=== PATIENT | female | born 1935 | race Caucasian/White ===

== ENCOUNTER 2017-11-11 06:43 | Inpatient (IN) ==
[2017-11-11] MEDS ORDERED: fentaNYL 100 MCG/2 ML VIAL IV STA (07:19)
[2017-11-11] MEDS ORDERED: metroNIDAZOLE INJ 500 MG in PREMIX 1 EACH IV STA (07:19)
[2017-11-11] MEDS ORDERED: ONDANSETRON 4 MG/2 ML VIAL IV STA (07:20)
[2017-11-11] MEDS ORDERED: PANTOPRAZOLE 40 MG TABLET PO SCH (09:20)
[2017-11-11] MEDS ORDERED: ACETAMINOPHEN 325 MG TABLET PO PRN (09:20)
[2017-11-11] MEDS: LACTATED RINGERS 1,000 ML IV SCH ×3 (10:25→21:01)
[2017-11-11] MEDS: MEPERIDINE 25 MG/1 ML VIAL IV PRN ×3 (10:25→20:58)
[2017-11-11] MEDS: CIPROFLOXACIN INJ 400 MG in PREMIX 1 EACH IV SCH ×2 (10:29→20:58)
[2017-11-11] MEDS: ATENOLOL 50 MG TABLET PO SCH ×2 (10:39→20:55)
[2017-11-11] MEDS: MEGESTROL 40 MG TABLET PO SCH ×4 (10:39→21:15)
[2017-11-11] MEDS: PANTOPRAZOLE 40 MG TABLET PO SCH (10:39)
[2017-11-11] MEDS: SIMVASTATIN 40 MG TABLET PO SCH (10:39)
[2017-11-11] MEDS: metroNIDAZOLE INJ 500 MG in PREMIX 1 EACH IV SCH ×2 (12:45→17:43)
[2017-11-11] MEDS: ONDANSETRON 4 MG/2 ML VIAL IV PRN (17:05)
[2017-11-11] MEDS: MIRTAZAPINE 30 MG TABLET PO SCH (18:30)
[2017-11-12] MEDS: ONDANSETRON 4 MG/2 ML VIAL IV PRN (01:03)
[2017-11-12] MEDS: MEPERIDINE 25 MG/1 ML VIAL IV PRN (01:03)
[2017-11-12] MEDS: metroNIDAZOLE INJ 500 MG in PREMIX 1 EACH IV SCH ×3 (01:04→23:12)
[2017-11-12] MEDS: LACTATED RINGERS 1,000 ML IV SCH ×3 (03:19→19:31)
[2017-11-12] MEDS: ENOXAPARIN 40 MG/0.4 ML SYRINGE SUBCUT SCH (06:05)
[2017-11-12] MEDS: LEVOTHYROXINE 100 MCG TABLET PO SCH (06:05)
[2017-11-12 07:08] LABS: Basophils % 0.1 % (0.0-0.8); Eosinophils % 0.1 % (0.00-10.9); Hematocrit 35.7 VOL% (35.7-47.0); Hemoglobin 11.4 GM/DL (12.0-16.0); Immature Granulocytes % 0.6 %; Immature Granulocytes Absolute 0.15 #; Lymphocytes # 1.8 10*3/uL (1.4-4.0); Lymphocytes % 7.6 % (21.3-54.2); Mean Corpuscular HGB Conc 31.9 GM/DL (32-36); Mean Corpuscular Hemoglobin 30 PG (27-34); Mean Corpuscular Volume 92.5 FL (87-102); Mean Platelet Volume 11.4 FL (9.6-12.0); Monocytes # 1.1 10*3/uL (0.11-0.8); Monocytes % 4.7 % (1.7-12.7); Neutrophils # 20.2 10*3/uL (1.4-7.4); Neutrophils % 86.9 % (38.7-73.9); Platelet Count 272 T/CUMM (130-400); Red Blood Count 3.86 MC/CUMM (3.8-5.5); Red Cell Distribution Width 13.4 % (9.3-17.3); White Blood Count 23.3 T/CUMM (4-12)
[2017-11-12 07:31] LABS: Calcium 8.3 MG/DL (8.5-10.1); Osmolality,Calculated 280.5 MOS/KG (273-304); Potassium 3.8 MMOL/L (3.5-5.1)
[2017-11-12 07:39] LABS: Band Neutrophils 3 % (0-10); Lymphocytes 3 % (20-55); Segmented Neutrophils 89 % (50-85); Total Cells Counted 100
[2017-11-12 07:40] LABS: Microcytosis Slight; Platelet Estimate Normal
[2017-11-12] MEDS: MEGESTROL 40 MG TABLET PO SCH ×4 (09:59→20:36)
[2017-11-12] MEDS: PANTOPRAZOLE 40 MG TABLET PO SCH (09:59)
[2017-11-12] MEDS: SIMVASTATIN 40 MG TABLET PO SCH (09:59)
[2017-11-12] MEDS: ATENOLOL 50 MG TABLET PO SCH ×2 (09:59→23:12)
[2017-11-12] MEDS: CIPROFLOXACIN INJ 400 MG in PREMIX 1 EACH IV SCH ×2 (11:02→20:35)
[2017-11-12] MEDS: MIRTAZAPINE 30 MG TABLET PO SCH (18:42)
[2017-11-13 06:01] LABS: Basophils % 0.1 % (0.0-0.8); Eosinophils # 0.1 10*3/uL (0.0-0.87); Eosinophils % 0.9 % (0.00-10.9); Hematocrit 32.9 VOL% (35.7-47.0); Hemoglobin 10.9 GM/DL (12.0-16.0); Immature Granulocytes % 0.7 %; Immature Granulocytes Absolute 0.11 #; Lymphocytes # 1.5 10*3/uL (1.4-4.0); Lymphocytes % 9.2 % (21.3-54.2); Mean Corpuscular HGB Conc 33.1 GM/DL (32-36); Mean Corpuscular Hemoglobin 30 PG (27-34); Mean Corpuscular Volume 91.1 FL (87-102); Mean Platelet Volume 11.4 FL (9.6-12.0); Monocytes # 0.9 10*3/uL (0.11-0.8); Monocytes % 5.8 % (1.7-12.7); Neutrophils # 13.5 10*3/uL (1.4-7.4); Neutrophils % 83.3 % (38.7-73.9); Platelet Count 232 T/CUMM (130-400); Red Blood Count 3.61 MC/CUMM (3.8-5.5); Red Cell Distribution Width 13.4 % (9.3-17.3); White Blood Count 16.1 T/CUMM (4-12)
[2017-11-13 06:20] LABS: Calcium 7.8 MG/DL (8.5-10.1); Osmolality,Calculated 280.4 MOS/KG (273-304); Potassium 3.8 MMOL/L (3.5-5.1)
[2017-11-13] MEDS: ENOXAPARIN 40 MG/0.4 ML SYRINGE SUBCUT SCH (06:42)
[2017-11-13] MEDS: LACTATED RINGERS 1,000 ML IV SCH (06:42)
[2017-11-13] MEDS: LEVOTHYROXINE 100 MCG TABLET PO SCH (06:43)
[2017-11-13] MEDS: metroNIDAZOLE INJ 500 MG in PREMIX 1 EACH IV SCH (06:43)
[2017-11-13] MEDS: metroNIDAZOLE 500 MG TABLET PO SCH ×3 (11:12→21:00)
[2017-11-13] MEDS: CIPROFLOXACIN 500 MG TABLET PO SCH ×2 (11:12→21:00)
[2017-11-13] MEDS: MEGESTROL 40 MG TABLET PO SCH ×4 (11:13→21:00)
[2017-11-13] MEDS: PANTOPRAZOLE 40 MG TABLET PO SCH (11:13)
[2017-11-13] MEDS: SIMVASTATIN 40 MG TABLET PO SCH (11:13)
[2017-11-13] MEDS: ATENOLOL 50 MG TABLET PO SCH ×2 (11:13→21:00)
[2017-11-13] MEDS: MIRTAZAPINE 30 MG TABLET PO SCH (19:34)
[2017-11-14 05:21] LABS: Basophils % 0.2 % (0.0-0.8); Eosinophils # 0.2 10*3/uL (0.0-0.87); Eosinophils % 1.4 % (0.00-10.9); Hematocrit 35.6 VOL% (35.7-47.0); Hemoglobin 11.4 GM/DL (12.0-16.0); Immature Granulocytes % 0.5 %; Immature Granulocytes Absolute 0.07 #; Lymphocytes # 1.5 10*3/uL (1.4-4.0); Lymphocytes % 10.9 % (21.3-54.2); Mean Corpuscular Hemoglobin 30 PG (27-34); Mean Corpuscular Volume 93.4 FL (87-102); Mean Platelet Volume 11.7 FL (9.6-12.0); Monocytes # 0.8 10*3/uL (0.11-0.8); Monocytes % 6.2 % (1.7-12.7); Neutrophils # 10.8 10*3/uL (1.4-7.4); Neutrophils % 80.8 % (38.7-73.9); Platelet Count 254 T/CUMM (130-400); Red Blood Count 3.81 MC/CUMM (3.8-5.5); Red Cell Distribution Width 13.4 % (9.3-17.3); White Blood Count 13.3 T/CUMM (4-12)
[2017-11-14] MEDS: ENOXAPARIN 40 MG/0.4 ML SYRINGE SUBCUT SCH (06:42)
[2017-11-14] MEDS: LEVOTHYROXINE 100 MCG TABLET PO SCH (06:42)
[2017-11-14 08:06] VITALS: BP 136/68
[2017-11-14] MEDS: metroNIDAZOLE 500 MG TABLET PO SCH (10:19)
[2017-11-14] MEDS: CIPROFLOXACIN 500 MG TABLET PO SCH (10:19)
[2017-11-14] MEDS: MEGESTROL 40 MG TABLET PO SCH (10:20)
[2017-11-14] MEDS: SIMVASTATIN 40 MG TABLET PO SCH (10:20)
[2017-11-14] MEDS: PANTOPRAZOLE 40 MG TABLET PO SCH (10:20)
[2017-11-14] MEDS: ATENOLOL 50 MG TABLET PO SCH (10:20)
== END 2017-11-14 11:03 | disposition home or self-care (01) | DRG 392 ==
LOC: EDBD → EDUNIT# → N.ED 06:43 → N.EDINP 07:30 → N.3E 08:45
PROVIDERS: ADMIT Surgery; ATTEND Surgery

== ENCOUNTER 2018-01-10 05:30 | Inpatient (IN) ==
[2018-01-03 09:51] LABS: Basophils # 0.1 10*3/uL (0.0-0.2); Basophils % 0.7 % (0.0-0.8); Eosinophils # 0.3 10*3/uL (0.0-0.87); Eosinophils % 2.5 % (0.00-10.9); Hematocrit 42.2 VOL% (35.7-47.0); Hemoglobin 13.6 GM/DL (12.0-16.0); Immature Granulocytes % 0.8 %; Lymphocytes # 3.1 10*3/uL (1.4-4.0); Lymphocytes % 26.4 % (21.3-54.2); Mean Corpuscular HGB Conc 32.2 GM/DL (32-36); Mean Corpuscular Hemoglobin 29 PG (27-34); Mean Corpuscular Volume 91.3 FL (87-102); Mean Platelet Volume 10.6 FL (9.6-12.0); Monocytes # 1.2 10*3/uL (0.11-0.8); Monocytes % 9.8 % (1.7-12.7); Neutrophils # 7.1 10*3/uL (1.4-7.4); Neutrophils % 59.8 % (38.7-73.9); Platelet Count 404 T/CUMM (130-400); Red Blood Count 4.62 MC/CUMM (3.8-5.5); Red Cell Distribution Width 13.1 % (9.3-17.3); White Blood Count 11.8 T/CUMM (4-12)
[2018-01-03 10:10] LABS: Albumin 3.3 G/DL (3.4-5.0); Bilirubin,Total 0.6 MG/DL (0.2-1.0); Calcium 9.2 MG/DL (8.5-10.1); Osmolality,Calculated 284.3 MOS/KG (273-304); Potassium 3.8 MMOL/L (3.5-5.1); Total Protein 7.9 G/DL (6.4-8.3)
[2018-01-10] MEDS ORDERED: ALVIMOPAN 12 MG CAPSULE PO ONE (06:00)
[2018-01-10] MEDS ORDERED: ACETAMINOPHEN 500 MG TABLET PO ONE (06:20)
[2018-01-10] MEDS ORDERED: PANTOPRAZOLE 40 MG TABLET PO ONE ×2 (06:20→07:53)
[2018-01-10] MEDS ORDERED: LACTATED RINGERS 1,000 ML IV SCH (06:30)
[2018-01-10] MEDS ORDERED: SCOPOLAMINE 1.5 MG PATCH TRANSDERM ONE ×2 (06:33→06:34)
[2018-01-10] MEDS ORDERED: ERTAPENEM 1,000 MG VIAL ONE (07:52)
[2018-01-10] MEDS ORDERED: ALVIMOPAN 12 MG CAPSULE ONE (07:53)
[2018-01-10] MEDS ORDERED: ERTAPENEM 1,000 MG in SODIUM CHLORIDE 0.9% 100 ML IV ONE (11:18)
[2018-01-10] MEDS ORDERED: fentaNYL 100 MCG/2 ML VIAL ONE (13:57)
[2018-01-10] MEDS ORDERED: PROPOFOL 200 MG/20 ML VIAL IV ONE (13:57)
[2018-01-10] MEDS ORDERED: ROCURONIUM 100 MG/10 ML VIAL IV ONE (13:58)
[2018-01-10] MEDS ORDERED: DEXAMETHASONE 10 MG/1 ML VIAL ONE (13:58)
[2018-01-10] MEDS ORDERED: ONDANSETRON 4 MG/2 ML VIAL ONE ×2 (13:58→14:03)
[2018-01-10] MEDS ORDERED: MIDAZOLAM 2 MG/2 ML VIAL ONE (13:58)
[2018-01-10] MEDS ORDERED: SEVOFLURANE 1 UNIT/15 MINUTE INH ONE (13:59)
[2018-01-10] MEDS: HYDROmorphone 2 MG/1 ML VIAL IV PRN ×5 (14:00→19:55)
[2018-01-10] MEDS ORDERED: SUGAMMADEX 200 MG/2 ML VIAL IV ONE (14:00)
[2018-01-10] MEDS ORDERED: HYDROmorphone 2 MG/1 ML VIAL ONE (14:16)
[2018-01-10] MEDS ORDERED: ONDANSETRON 4 MG/2 ML VIAL IV PRN (14:18)
[2018-01-10] MEDS ORDERED: BUPIVACAINE 0.25% /EPI 10 ML VIAL ONE ×2 (14:46→14:47)
[2018-01-10] MEDS ORDERED: ACETAMINOPHEN 1,000 MG/100 ML VIAL IV ONE (15:14)
[2018-01-10] MEDS ORDERED: ACETAMINOPHEN INJ 1,000 MG in PREMIX 1 EACH IV ONE (15:19)
[2018-01-10] MEDS ORDERED: PROMETHAZINE 25 MG/1 ML VIAL IM PRN (15:51)
[2018-01-10] MEDS ORDERED: KETOROLAC 15 MG/1 ML VIAL IV SCH (15:51)
[2018-01-10] MEDS ORDERED: LACTATED RINGERS 1,000 ML IV ONE ×2 (17:03→22:11)
[2018-01-10 17:31] LABS: Calcium 8.2 MG/DL (8.5-10.1); Osmolality,Calculated 282.7 MOS/KG (273-304); Potassium 3.9 MMOL/L (3.5-5.1)
[2018-01-10 17:46] LABS: Basophils % 0.1 % (0.0-0.8); Hematocrit 34.4 VOL% (35.7-47.0); Hemoglobin 11.2 GM/DL (12.0-16.0); Immature Granulocytes % 0.6 %; Immature Granulocytes Absolute 0.13 #; Lymphocytes # 1.8 10*3/uL (1.4-4.0); Lymphocytes % 8.6 % (21.3-54.2); Mean Corpuscular HGB Conc 32.6 GM/DL (32-36); Mean Corpuscular Hemoglobin 30 PG (27-34); Mean Platelet Volume 11.2 FL (9.6-12.0); Monocytes # 2.1 10*3/uL (0.11-0.8); Monocytes % 9.7 % (1.7-12.7); Neutrophils # 17.1 10*3/uL (1.4-7.4); Platelet Count 362 T/CUMM (130-400); Red Cell Distribution Width 13.2 % (9.3-17.3); White Blood Count 21.2 T/CUMM (4-12)
[2018-01-10] MEDS: LACTATED RINGERS 1,000 ML IV SCH (18:07)
[2018-01-10] MEDS: MIRTAZAPINE 30 MG TABLET PO SCH (18:10)
[2018-01-10 18:51] LABS: Band Neutrophils 11 % (0-10); Lymphocytes 5 % (20-55); Platelet Estimate Normal; Polychromasia Slight; Segmented Neutrophils 72 % (50-85); Total Cells Counted 100
[2018-01-10 18:52] LABS: Apearance,Urine Slightly Hazy (Clear); Bilirubin,Urine Negative (Negative); Blood, Urine Large mg/dL (Negative); Glucose,Urine (UA) 50 mg/dL (Negative); Hyaline Casts,Urine 4 /LPF (0-3); Ketones,Urine Negative (Negative); Mucus,Urine Occasional /LPF (Occasional); Nitrite,Urine Negative (Negative); Protein,Urine 30 MG/DL; RBC,Urine 76 /HPF (0-4); Renal Epithelial Cells,Urine Occasional /HPF (<1); Squamous Epithelial Cell,Urine Occasional /HPF (0-10); Urine Color Yellow (Yellow); Urine Specific Gravity 1.018 (1.001-1.035); Urine Urobilinogen < 2.0 EU/DL (0.2-1.0); WBC,Urine 10 /HPF (0-6)
[2018-01-10] MEDS: ONDANSETRON 4 MG/2 ML VIAL IV PRN (19:54)
[2018-01-10] MEDS: ATENOLOL 50 MG TABLET PO SCH (21:11)
[2018-01-10] MEDS: MEGESTROL 40 MG TABLET PO SCH (21:11)
[2018-01-10] MEDS: MELATONIN 3 MG TABLET PO SCH (21:11)
[2018-01-10 21:24] LABS: Basophils % 0.1 % (0.0-0.8); Hematocrit 29.8 VOL% (35.7-47.0); Hemoglobin 10.1 GM/DL (12.0-16.0); Hemoglobin 10.2 GM/DL (12.0-16.0); Immature Granulocytes % 0.7 %; Immature Granulocytes Absolute 0.12 #; Lymphocytes # 1.5 10*3/uL (1.4-4.0); Lymphocytes % 8.4 % (21.3-54.2); Mean Corpuscular HGB Conc 34.2 GM/DL (32-36); Mean Corpuscular Hemoglobin 30 PG (27-34); Mean Corpuscular Volume 88.7 FL (87-102); Mean Platelet Volume 11.4 FL (9.6-12.0); Monocytes # 1.5 10*3/uL (0.11-0.8); Monocytes % 8.1 % (1.7-12.7); Neutrophils # 15.3 10*3/uL (1.4-7.4); Neutrophils % 82.7 % (38.7-73.9); Platelet Count 322 T/CUMM (130-400); Red Blood Count 3.36 MC/CUMM (3.8-5.5); Red Cell Distribution Width 13.2 % (9.3-17.3); White Blood Count 18.4 T/CUMM (4-12)
[2018-01-10 21:40] LABS: PT Patient Result 10.8 SECS; Partial Thromboplastin Time 24.5 SECS (0-40)
[2018-01-10] MEDS: ALVIMOPAN 12 MG CAPSULE PO SCH (22:16)
[2018-01-11] MEDS: LACTATED RINGERS 1,000 ML IV SCH ×5 (02:01→23:23)
[2018-01-11 04:27] LABS: Basophils % 0.1 % (0.0-0.8); Hematocrit 26.6 VOL% (35.7-47.0); Hemoglobin 8.8 GM/DL (12.0-16.0); Immature Granulocytes % 0.4 %; Immature Granulocytes Absolute 0.08 #; Lymphocytes # 2.1 10*3/uL (1.4-4.0); Lymphocytes % 11.8 % (21.3-54.2); Mean Corpuscular HGB Conc 33.1 GM/DL (32-36); Mean Corpuscular Hemoglobin 30 PG (27-34); Mean Corpuscular Volume 90.2 FL (87-102); Mean Platelet Volume 11.8 FL (9.6-12.0); Monocytes # 1.5 10*3/uL (0.11-0.8); Monocytes % 8.5 % (1.7-12.7); Neutrophils # 14.1 10*3/uL (1.4-7.4); Neutrophils % 79.2 % (38.7-73.9); Platelet Count 261 T/CUMM (130-400); Red Blood Count 2.95 MC/CUMM (3.8-5.5); Red Cell Distribution Width 13.2 % (9.3-17.3); White Blood Count 17.8 T/CUMM (4-12)
[2018-01-11 04:50] LABS: Calcium 8.1 MG/DL (8.5-10.1); Osmolality,Calculated 285.4 MOS/KG (273-304); Potassium 4.1 MMOL/L (3.5-5.1)
[2018-01-11 05:21] LABS: Band Neutrophils 9 % (0-10); Lymphocytes 16 % (20-55); Platelet Estimate Normal; Segmented Neutrophils 69 % (50-85); Total Cells Counted 100
[2018-01-11] MEDS ORDERED: ENOXAPARIN 40 MG/0.4 ML SYRINGE SUBCUT SCH (07:52)
[2018-01-11] MEDS ORDERED: ALBUMIN 5% 25 GM in PREMIX 1 EACH IV ONE ×2 (08:01→13:12)
[2018-01-11] MEDS ORDERED: ACETAMINOPHEN INJ 1,000 MG in PREMIX 1 EACH IV ONE (08:01)
[2018-01-11] MEDS ORDERED: ALBUMIN 5% 12.5 GM/250 ML VIAL IV ONE ×2 (08:03→12:47)
[2018-01-11] MEDS: LEVOTHYROXINE 100 MCG TABLET PO SCH ×2 (08:52→09:17)
[2018-01-11] MEDS: MEGESTROL 40 MG TABLET PO SCH ×3 (08:53→21:45)
[2018-01-11] MEDS: PANTOPRAZOLE 40 MG VIAL IV SCH (08:54)
[2018-01-11] MEDS: SIMVASTATIN 40 MG TABLET PO SCH ×2 (08:54→09:17)
[2018-01-11] MEDS: ATENOLOL 50 MG TABLET PO SCH ×2 (08:54→21:40)
[2018-01-11] MEDS: ALVIMOPAN 12 MG CAPSULE PO SCH ×2 (09:02→21:44)
[2018-01-11] MEDS: HYDROmorphone 2 MG/1 ML VIAL IV PRN ×4 (10:27→21:45)
[2018-01-11 13:06] LABS: Basophils % 0.1 % (0.0-0.8); Hematocrit 21.3 VOL% (35.7-47.0); Immature Granulocytes % 0.5 %; Immature Granulocytes Absolute 0.07 #; Lymphocytes # 1.9 10*3/uL (1.4-4.0); Lymphocytes % 12.6 % (21.3-54.2); Mean Corpuscular HGB Conc 34.3 GM/DL (32-36); Mean Corpuscular Hemoglobin 31 PG (27-34); Mean Corpuscular Volume 90.6 FL (87-102); Mean Platelet Volume 11.9 FL (9.6-12.0); Monocytes # 1.6 10*3/uL (0.11-0.8); Monocytes % 10.6 % (1.7-12.7); Neutrophils # 11.3 10*3/uL (1.4-7.4); Neutrophils % 76.2 % (38.7-73.9); Platelet Count 211 T/CUMM (130-400); Red Cell Distribution Width 13.6 % (9.3-17.3); White Blood Count 14.9 T/CUMM (4-12)
[2018-01-11 13:07] LABS: Hemoglobin 7.3 GM/DL (12.0-16.0); Red Blood Count 2.35 MC/CUMM (3.8-5.5)
[2018-01-11] MEDS ORDERED: SODIUM CHLORIDE 0.9% 1,000 ML IV PRN (13:09)
[2018-01-11 13:28] LABS: Band Neutrophils 6 % (0-10); Lymphocytes 15 % (20-55); Microcytosis 1+; Segmented Neutrophils 67 % (50-85); Total Cells Counted 100
[2018-01-11 13:29] LABS: Platelet Estimate Normal
[2018-01-11] MEDS: MIRTAZAPINE 30 MG TABLET PO SCH (18:18)
[2018-01-11 20:46] LABS: Basophils % 0.1 % (0.0-0.8); Hematocrit 27.8 VOL% (35.7-47.0); Hemoglobin 9.6 GM/DL (12.0-16.0); Immature Granulocytes % 0.6 %; Immature Granulocytes Absolute 0.07 #; Lymphocytes # 1.3 10*3/uL (1.4-4.0); Lymphocytes % 10.2 % (21.3-54.2); Mean Corpuscular HGB Conc 34.5 GM/DL (32-36); Mean Corpuscular Hemoglobin 30 PG (27-34); Mean Corpuscular Volume 85.5 FL (87-102); Mean Platelet Volume 11.9 FL (9.6-12.0); Monocytes # 1.1 10*3/uL (0.11-0.8); Monocytes % 8.8 % (1.7-12.7); Neutrophils % 80.3 % (38.7-73.9); Platelet Count 180 T/CUMM (130-400); Red Blood Count 3.25 MC/CUMM (3.8-5.5); White Blood Count 12.4 T/CUMM (4-12)
[2018-01-11 20:55] LABS: Calcium 7.8 MG/DL (8.5-10.1); Osmolality,Calculated 290.8 MOS/KG (273-304); Potassium 3.6 MMOL/L (3.5-5.1)
[2018-01-11] MEDS: MELATONIN 3 MG TABLET PO SCH (21:44)
[2018-01-12] MEDS: HYDROmorphone 2 MG/1 ML VIAL IV PRN ×3 (03:12→20:44)
[2018-01-12] MEDS: LEVOTHYROXINE 100 MCG TABLET PO SCH (06:51)
[2018-01-12 07:04] LABS: Basophils % 0.1 % (0.0-0.8); Eosinophils % 0.1 % (0.00-10.9); Hematocrit 27.6 VOL% (35.7-47.0); Hemoglobin 9.5 GM/DL (12.0-16.0); Immature Granulocytes % 0.8 %; Lymphocytes # 0.9 10*3/uL (1.4-4.0); Lymphocytes % 6.9 % (21.3-54.2); Mean Corpuscular HGB Conc 34.4 GM/DL (32-36); Mean Corpuscular Hemoglobin 30 PG (27-34); Mean Corpuscular Volume 86.3 FL (87-102); Mean Platelet Volume 11.7 FL (9.6-12.0); Monocytes # 0.9 10*3/uL (0.11-0.8); NRBC # 0.02 10*3/uL; Neutrophils # 10.6 10*3/uL (1.4-7.4); Neutrophils % 85.1 % (38.7-73.9); Platelet Count 170 T/CUMM (130-400); Red Cell Distribution Width 14.5 % (9.3-17.3); White Blood Count 12.4 T/CUMM (4-12)
[2018-01-12] MEDS ORDERED: FUROSEMIDE 20 MG/2 ML VIAL IV ONE (07:15)
[2018-01-12 07:40] LABS: Calcium 7.9 MG/DL (8.5-10.1); Osmolality,Calculated 289.8 MOS/KG (273-304); Potassium 3.7 MMOL/L (3.5-5.1)
[2018-01-12] MEDS: DEXT 5% NACL 0.45% KCL 20 MEQ 20 MEQ/1,000 ML BAG IV SCH (07:48)
[2018-01-12] MEDS: ALVIMOPAN 12 MG CAPSULE PO SCH ×2 (08:12→20:55)
[2018-01-12] MEDS: PANTOPRAZOLE 40 MG VIAL IV SCH (08:12)
[2018-01-12] MEDS: MEGESTROL 40 MG TABLET PO SCH ×2 (08:12→20:36)
[2018-01-12] MEDS: ATENOLOL 50 MG TABLET PO SCH ×2 (08:13→20:55)
[2018-01-12] MEDS: SIMVASTATIN 40 MG TABLET PO SCH (08:13)
[2018-01-12] MEDS: MIRTAZAPINE 30 MG TABLET PO SCH (18:57)
[2018-01-12] MEDS: MELATONIN 3 MG TABLET PO SCH (20:36)
[2018-01-12] MEDS: ONDANSETRON 4 MG/2 ML VIAL IV PRN (20:42)
[2018-01-13] MEDS: DEXT 5% NACL 0.45% KCL 20 MEQ 20 MEQ/1,000 ML BAG IV SCH (03:28)
[2018-01-13] MEDS: ONDANSETRON 4 MG/2 ML VIAL IV PRN (03:59)
[2018-01-13] MEDS: HYDROmorphone 2 MG/1 ML VIAL IV PRN ×2 (04:00→09:19)
[2018-01-13] MEDS: LEVOTHYROXINE 100 MCG TABLET PO SCH (06:17)
[2018-01-13 06:50] LABS: Basophils % 0.1 % (0.0-0.8); Eosinophils # 0.1 10*3/uL (0.0-0.87); Eosinophils % 0.6 % (0.00-10.9); Hematocrit 28.3 VOL% (35.7-47.0); Hemoglobin 9.6 GM/DL (12.0-16.0); Immature Granulocytes % 0.7 %; Immature Granulocytes Absolute 0.08 #; Lymphocytes # 0.9 10*3/uL (1.4-4.0); Lymphocytes % 7.2 % (21.3-54.2); Mean Corpuscular HGB Conc 33.9 GM/DL (32-36); Mean Corpuscular Hemoglobin 30 PG (27-34); Mean Corpuscular Volume 89.3 FL (87-102); Mean Platelet Volume 11.6 FL (9.6-12.0); Monocytes # 0.5 10*3/uL (0.11-0.8); Monocytes % 4.3 % (1.7-12.7); Neutrophils # 10.6 10*3/uL (1.4-7.4); Neutrophils % 87.1 % (38.7-73.9); Platelet Count 182 T/CUMM (130-400); Red Blood Count 3.17 MC/CUMM (3.8-5.5); Red Cell Distribution Width 14.6 % (9.3-17.3); White Blood Count 12.1 T/CUMM (4-12)
[2018-01-13 07:15] LABS: Calcium 8.2 MG/DL (8.5-10.1)
[2018-01-13 07:16] LABS: Osmolality,Calculated 281.4 MOS/KG (273-304); Potassium 3.3 MMOL/L (3.5-5.1)
[2018-01-13] MEDS: SIMVASTATIN 40 MG TABLET PO SCH (09:19)
[2018-01-13] MEDS: MEGESTROL 40 MG TABLET PO SCH ×2 (09:19→20:36)
[2018-01-13] MEDS: PANTOPRAZOLE 40 MG VIAL IV SCH (09:20)
[2018-01-13] MEDS: ATENOLOL 50 MG TABLET PO SCH ×2 (09:26→20:37)
[2018-01-13] MEDS: KETOROLAC 15 MG/1 ML VIAL IV SCH ×3 (10:41→20:36)
[2018-01-13] MEDS: ENOXAPARIN 40 MG/0.4 ML SYRINGE SUBCUT SCH (10:42)
[2018-01-13] MEDS: MIRTAZAPINE 30 MG TABLET PO SCH (18:21)
[2018-01-13] MEDS: MELATONIN 3 MG TABLET PO SCH (20:35)
[2018-01-14] MEDS: HYDROmorphone 2 MG/1 ML VIAL IV PRN (02:25)
[2018-01-14] MEDS: KETOROLAC 15 MG/1 ML VIAL IV SCH ×2 (04:40→09:34)
[2018-01-14] MEDS: LEVOTHYROXINE 100 MCG TABLET PO SCH (07:24)
[2018-01-14 08:03] VITALS: BP 132/98
[2018-01-14] MEDS ORDERED: PANTOPRAZOLE 40 MG TABLET PO SCH (09:00)
[2018-01-14] MEDS: MEGESTROL 40 MG TABLET PO SCH (09:29)
[2018-01-14] MEDS: SIMVASTATIN 40 MG TABLET PO SCH (09:29)
[2018-01-14] MEDS: ATENOLOL 50 MG TABLET PO SCH (09:30)
[2018-01-14] MEDS: ENOXAPARIN 40 MG/0.4 ML SYRINGE SUBCUT SCH (09:33)
== END 2018-01-14 11:30 | disposition home or self-care (01) | DRG 330 ==
LOC: N.OR 05:30 → N.SDSINP 05:30 → N.3E 15:50 → N.CC 17:30 → N.3E 01-12 12:25
PROVIDERS: ADMIT Surgery; ATTEND Surgery

== ENCOUNTER 2018-01-15 05:52 | Inpatient (IN) ==
[2018-01-15] MEDS ORDERED: SODIUM CHLORIDE 0.9% 1,000 ML IV STA (06:20)
[2018-01-15] MEDS ORDERED: ONDANSETRON 4 MG/2 ML VIAL IV STA (06:20)
[2018-01-15 06:29] LABS: Basophils % 0.2 % (0.0-0.8); Eosinophils % 0.2 % (0.00-10.9); Hematocrit 37.8 VOL% (35.7-47.0); Hemoglobin 12.6 GM/DL (12.0-16.0); Immature Granulocytes % 0.8 %; Immature Granulocytes Absolute 0.05 #; Lymphocytes # 0.6 10*3/uL (1.4-4.0); Lymphocytes % 9.7 % (21.3-54.2); Mean Corpuscular HGB Conc 33.3 GM/DL (32-36); Mean Corpuscular Hemoglobin 30 PG (27-34); Mean Corpuscular Volume 88.7 FL (87-102); Mean Platelet Volume 10.9 FL (9.6-12.0); Monocytes # 0.2 10*3/uL (0.11-0.8); Monocytes % 3.2 % (1.7-12.7); Neutrophils # 5.4 10*3/uL (1.4-7.4); Neutrophils % 85.9 % (38.7-73.9); Platelet Count 382 T/CUMM (130-400); Red Blood Count 4.26 MC/CUMM (3.8-5.5); Red Cell Distribution Width 14.4 % (9.3-17.3); White Blood Count 6.3 T/CUMM (4-12)
[2018-01-15 06:50] LABS: Albumin 2.2 G/DL (3.4-5.0); Band Neutrophils 20 % (0-10); Bilirubin,Total 1.4 MG/DL (0.2-1.0); Calcium 8.2 MG/DL (8.5-10.1); Eosinophils 2 % (0-10); Hypochromasia 1+; Lymphocytes 11 % (20-55); Osmolality,Calculated 284.3 MOS/KG (273-304); Platelet Estimate Adequate; Potassium 3.7 MMOL/L (3.5-5.1); Segmented Neutrophils 64 % (50-85); Total Cells Counted 100
[2018-01-15] MEDS ORDERED: HYDROmorphone 2 MG/1 ML VIAL IV STA (07:20)
[2018-01-15] MEDS ORDERED: HYDROmorphone 2 MG/1 ML VIAL ONE (07:23)
[2018-01-15] MEDS ORDERED: ERTAPENEM 1,000 MG in SODIUM CHLORIDE 0.9% 100 ML IV ONE (08:13)
[2018-01-15] MEDS ORDERED: PROMETHAZINE 25 MG/1 ML VIAL IM PRN (08:22)
[2018-01-15 08:26] LABS: Apearance,Urine CLEAR (Clear); Bilirubin,Urine Negative (Negative); Blood, Urine Small mg/dL (Negative); Glucose,Urine (UA) Negative (Negative); Ketones,Urine Negative (Negative); Mucus,Urine Occasional /LPF (Occasional); Nitrite,Urine Negative (Negative); Protein,Urine Negative; RBC,Urine 3 /HPF (0-4); Urine Color Yellow (Yellow); Urine Specific Gravity 1.053 (1.001-1.035); Urine Urobilinogen < 2.0 EU/DL (0.2-1.0); WBC,Urine 1 /HPF (0-6)
[2018-01-15] MEDS: LACTATED RINGERS 1,000 ML IV SCH ×2 (08:52→17:30)
[2018-01-15] MEDS ORDERED: PANTOPRAZOLE 40 MG TABLET PO SCH (09:00)
[2018-01-15] MEDS: ERTAPENEM 1,000 MG in SODIUM CHLORIDE 0.9% 100 ML IV SCH (09:22)
[2018-01-15] MEDS: HYDROmorphone 2 MG/1 ML VIAL IV PRN ×5 (09:24→22:38)
[2018-01-15] MEDS ORDERED: LACTATED RINGERS 1,000 ML IV ONE (22:37)
[2018-01-16] MEDS: LACTATED RINGERS 1,000 ML IV SCH ×2 (02:38→09:38)
[2018-01-16] MEDS: ENOXAPARIN 40 MG/0.4 ML SYRINGE SUBCUT SCH (05:58)
[2018-01-16] MEDS: HYDROmorphone 2 MG/1 ML VIAL IV PRN ×2 (06:22→07:58)
[2018-01-16] MEDS: ONDANSETRON 4 MG/2 ML VIAL IV PRN ×2 (08:00→16:32)
[2018-01-16 08:15] LABS: Basophils % 0.3 % (0.0-0.8); Eosinophils # 0.1 10*3/uL (0.0-0.87); Eosinophils % 0.9 % (0.00-10.9); Hematocrit 30.4 VOL% (35.7-47.0); Hemoglobin 10.2 GM/DL (12.0-16.0); Immature Granulocytes % 0.5 %; Immature Granulocytes Absolute 0.07 #; Mean Corpuscular HGB Conc 33.6 GM/DL (32-36); Mean Corpuscular Hemoglobin 30 PG (27-34); Mean Corpuscular Volume 87.9 FL (87-102); Mean Platelet Volume 11.2 FL (9.6-12.0); Monocytes # 0.9 10*3/uL (0.11-0.8); Monocytes % 6.6 % (1.7-12.7); Neutrophils # 11.9 10*3/uL (1.4-7.4); Neutrophils % 84.7 % (38.7-73.9); Platelet Count 349 T/CUMM (130-400); Red Blood Count 3.46 MC/CUMM (3.8-5.5); Red Cell Distribution Width 14.8 % (9.3-17.3)
[2018-01-16] MEDS ORDERED: HYDROmorphone 2 MG/1 ML VIAL IV ONE ×2 (08:22→10:08)
[2018-01-16 08:38] LABS: Anisocytosis Slight; Band Neutrophils 39 % (0-10); Lymphocytes 4 % (20-55); Macrocytosis Slight; Platelet Estimate Normal; Segmented Neutrophils 53 % (50-85); Total Cells Counted 100
[2018-01-16 08:41] LABS: Calcium 8.1 MG/DL (8.5-10.1)
[2018-01-16 08:42] LABS: Osmolality,Calculated 285.1 MOS/KG (273-304); Potassium 3.7 MMOL/L (3.5-5.1)
[2018-01-16] MEDS: hydroCHLOROthiazide 25 MG TABLET PO SCH (08:57)
[2018-01-16] MEDS: SIMVASTATIN 40 MG TABLET PO SCH (08:57)
[2018-01-16] MEDS: PANTOPRAZOLE 40 MG TABLET PO SCH (08:58)
[2018-01-16] MEDS: MEGESTROL 40 MG TABLET PO SCH ×2 (08:58→21:20)
[2018-01-16] MEDS: ERTAPENEM 1,000 MG in SODIUM CHLORIDE 0.9% 100 ML IV SCH (08:58)
[2018-01-16] MEDS: ATENOLOL 50 MG TABLET PO SCH ×2 (08:58→21:20)
[2018-01-16] MEDS ORDERED: NALOXONE 0.4 MG/ML VIAL IV PRN (09:27)
[2018-01-16] MEDS ORDERED: HYDROmorphone PCA 30 MG/30 ML SYRINGE IV SCH (09:30)
[2018-01-16] MEDS: HYDROmorphone PCA 30 MG/30 ML SYRINGE IV SCH (10:46)
[2018-01-16] MEDS: DEXT 5% NACL 0.45% KCL 20 MEQ 20 MEQ/1,000 ML BAG IV SCH ×2 (10:53→19:08)
[2018-01-16] MEDS ORDERED: LACTATED RINGERS 500 ML IV ONE (14:20)
[2018-01-16 16:02] LABS: Basophils % 0.2 % (0.0-0.8); Eosinophils # 0.1 10*3/uL (0.0-0.87); Eosinophils % 0.7 % (0.00-10.9); Hematocrit 34.3 VOL% (35.7-47.0); Hemoglobin 11.2 GM/DL (12.0-16.0); Immature Granulocytes % 0.6 %; Immature Granulocytes Absolute 0.08 #; Lymphocytes # 1.1 10*3/uL (1.4-4.0); Lymphocytes % 8.3 % (21.3-54.2); Mean Corpuscular HGB Conc 32.7 GM/DL (32-36); Mean Corpuscular Hemoglobin 29 PG (27-34); Mean Corpuscular Volume 89.6 FL (87-102); Mean Platelet Volume 10.5 FL (9.6-12.0); Monocytes # 0.5 10*3/uL (0.11-0.8); Monocytes % 3.8 % (1.7-12.7); Neutrophils # 11.1 10*3/uL (1.4-7.4); Neutrophils % 86.4 % (38.7-73.9); Platelet Count 430 T/CUMM (130-400); Red Blood Count 3.83 MC/CUMM (3.8-5.5); Red Cell Distribution Width 14.9 % (9.3-17.3); White Blood Count 12.8 T/CUMM (4-12)
[2018-01-16 16:24] LABS: PT Patient Result 10.7 SECS; Partial Thromboplastin Time 39.3 SECS (0-40)
[2018-01-16 16:29] LABS: Fibrinogen Quant Value > 900 MG% (200-400)
[2018-01-16] MEDS: MIRTAZAPINE 30 MG TABLET PO SCH (19:08)
[2018-01-16] MEDS: MELATONIN 3 MG TABLET PO SCH (21:20)
[2018-01-17] MEDS: DEXT 5% NACL 0.45% KCL 20 MEQ 20 MEQ/1,000 ML BAG IV SCH ×4 (02:30→20:36)
[2018-01-17 05:09] LABS: Basophils % 0.2 % (0.0-0.8); Eosinophils # 0.3 10*3/uL (0.0-0.87); Eosinophils % 2.1 % (0.00-10.9); Hematocrit 32.1 VOL% (35.7-47.0); Hemoglobin 10.8 GM/DL (12.0-16.0); Immature Granulocytes % 0.6 %; Immature Granulocytes Absolute 0.09 #; Lymphocytes # 0.8 10*3/uL (1.4-4.0); Lymphocytes % 5.7 % (21.3-54.2); Mean Corpuscular HGB Conc 33.6 GM/DL (32-36); Mean Corpuscular Hemoglobin 30 PG (27-34); Mean Corpuscular Volume 87.7 FL (87-102); Mean Platelet Volume 10.7 FL (9.6-12.0); Monocytes # 0.4 10*3/uL (0.11-0.8); Monocytes % 3.1 % (1.7-12.7); Neutrophils # 12.4 10*3/uL (1.4-7.4); Neutrophils % 88.3 % (38.7-73.9); Platelet Count 444 T/CUMM (130-400); Red Blood Count 3.66 MC/CUMM (3.8-5.5); Red Cell Distribution Width 14.9 % (9.3-17.3)
[2018-01-17 05:38] LABS: Calcium 7.9 MG/DL (8.5-10.1); Osmolality,Calculated 279.7 MOS/KG (273-304); Potassium 3.7 MMOL/L (3.5-5.1)
[2018-01-17 05:40] LABS: Band Neutrophils 6 % (0-10); Eosinophils 4 % (0-10); Hypochromasia 1+; Lymphocytes 3 % (20-55); Platelet Estimate Adequate; Segmented Neutrophils 82 % (50-85); Total Cells Counted 100
[2018-01-17] MEDS: LEVOTHYROXINE 100 MCG TABLET PO SCH (06:41)
[2018-01-17] MEDS: ENOXAPARIN 40 MG/0.4 ML SYRINGE SUBCUT SCH (06:41)
[2018-01-17] MEDS ORDERED: MAGNESIUM SULF RIDER 4 GM in PREMIX 1 EACH IV PRN (07:03)
[2018-01-17] MEDS ORDERED: POTASSIUM CHLORIDE 20 MEQ TABLET PO PRN (07:03)
[2018-01-17] MEDS: hydroCHLOROthiazide 25 MG TABLET PO SCH (08:55)
[2018-01-17] MEDS: SIMVASTATIN 40 MG TABLET PO SCH (08:55)
[2018-01-17] MEDS: MEGESTROL 40 MG TABLET PO SCH ×2 (08:55→20:35)
[2018-01-17] MEDS: PANTOPRAZOLE 40 MG TABLET PO SCH (08:55)
[2018-01-17] MEDS: ATENOLOL 50 MG TABLET PO SCH ×2 (08:56→20:35)
[2018-01-17] MEDS: ONDANSETRON 4 MG/2 ML VIAL IV PRN (09:04)
[2018-01-17] MEDS: ERTAPENEM 1,000 MG in SODIUM CHLORIDE 0.9% 100 ML IV SCH (09:13)
[2018-01-17] MEDS: HYDROmorphone PCA 30 MG/30 ML SYRINGE IV SCH (12:14)
[2018-01-17] MEDS: MIRTAZAPINE 30 MG TABLET PO SCH (18:30)
[2018-01-17] MEDS: MELATONIN 3 MG TABLET PO SCH (20:34)
[2018-01-18 04:38] LABS: Basophils % 0.2 % (0.0-0.8); Eosinophils # 0.3 10*3/uL (0.0-0.87); Eosinophils % 1.8 % (0.00-10.9); Hematocrit 31.4 VOL% (35.7-47.0); Hemoglobin 10.5 GM/DL (12.0-16.0); Immature Granulocytes % 0.9 %; Immature Granulocytes Absolute 0.17 #; Lymphocytes # 0.8 10*3/uL (1.4-4.0); Lymphocytes % 4.1 % (21.3-54.2); Mean Corpuscular HGB Conc 33.4 GM/DL (32-36); Mean Corpuscular Hemoglobin 30 PG (27-34); Mean Corpuscular Volume 88.5 FL (87-102); Mean Platelet Volume 10.8 FL (9.6-12.0); Monocytes # 0.7 10*3/uL (0.11-0.8); Monocytes % 3.9 % (1.7-12.7); Neutrophils # 16.1 10*3/uL (1.4-7.4); Neutrophils % 89.1 % (38.7-73.9); Platelet Count 516 T/CUMM (130-400); Red Blood Count 3.55 MC/CUMM (3.8-5.5); White Blood Count 18.1 T/CUMM (4-12)
[2018-01-18] MEDS: DEXT 5% NACL 0.45% KCL 20 MEQ 20 MEQ/1,000 ML BAG IV SCH ×3 (04:39→21:02)
[2018-01-18 05:03] LABS: Calcium 7.9 MG/DL (8.5-10.1); Osmolality,Calculated 276.8 MOS/KG (273-304); Potassium 3.9 MMOL/L (3.5-5.1)
[2018-01-18] MEDS: ENOXAPARIN 40 MG/0.4 ML SYRINGE SUBCUT SCH (06:20)
[2018-01-18] MEDS: LEVOTHYROXINE 100 MCG TABLET PO SCH (06:20)
[2018-01-18 07:21] LABS: Band Neutrophils 2 % (0-10); Eosinophils 2 % (0-10); Lymphocytes 3 % (20-55); Segmented Neutrophils 92 % (50-85); Total Cells Counted 100
[2018-01-18 07:22] LABS: Anisocytosis Slight; Macrocytosis Slight; Platelet Estimate Increased
[2018-01-18] MEDS: ATENOLOL 50 MG TABLET PO SCH ×2 (08:15→21:02)
[2018-01-18] MEDS: SIMVASTATIN 40 MG TABLET PO SCH (08:15)
[2018-01-18] MEDS: MEGESTROL 40 MG TABLET PO SCH ×2 (08:15→21:02)
[2018-01-18] MEDS: hydroCHLOROthiazide 25 MG TABLET PO SCH (08:15)
[2018-01-18] MEDS: PANTOPRAZOLE 40 MG TABLET PO SCH (08:15)
[2018-01-18] MEDS: ERTAPENEM 1,000 MG in SODIUM CHLORIDE 0.9% 100 ML IV SCH (08:18)
[2018-01-18] MEDS: HYDROmorphone PCA 30 MG/30 ML SYRINGE IV SCH (11:16)
[2018-01-18] MEDS: PHENOL 1.4% THROAT SPRAY 177 ML BOTTLE PO PRN (13:22)
[2018-01-18] MEDS: MIRTAZAPINE 30 MG TABLET PO SCH (18:33)
[2018-01-18] MEDS: MELATONIN 3 MG TABLET PO SCH (21:02)
[2018-01-19] MEDS: DEXT 5% NACL 0.45% KCL 20 MEQ 20 MEQ/1,000 ML BAG IV SCH ×2 (04:30→20:12)
[2018-01-19] MEDS: ENOXAPARIN 40 MG/0.4 ML SYRINGE SUBCUT SCH (06:09)
[2018-01-19] MEDS: LEVOTHYROXINE 100 MCG TABLET PO SCH (06:09)
[2018-01-19] MEDS: ONDANSETRON 4 MG/2 ML VIAL IV PRN ×2 (06:50→13:11)
[2018-01-19] MEDS: SIMVASTATIN 40 MG TABLET PO SCH (08:47)
[2018-01-19] MEDS: PANTOPRAZOLE 40 MG TABLET PO SCH (08:47)
[2018-01-19] MEDS: hydroCHLOROthiazide 25 MG TABLET PO SCH (08:47)
[2018-01-19] MEDS: MEGESTROL 40 MG TABLET PO SCH ×2 (08:47→21:08)
[2018-01-19] MEDS: ATENOLOL 50 MG TABLET PO SCH ×2 (08:47→21:08)
[2018-01-19] MEDS: ERTAPENEM 1,000 MG in SODIUM CHLORIDE 0.9% 100 ML IV SCH (08:52)
[2018-01-19] MEDS ORDERED: ALBUTEROL/IPRATROPIUM 3 ML NEB RESP TX PRN (08:57)
[2018-01-19] MEDS ORDERED: FUROSEMIDE 40 MG/4 ML VIAL IV ONE (09:29)
[2018-01-19 11:41] LABS: Troponin I < 0.015 NG/ML (0.00-0.045)
[2018-01-19] MEDS: HYDROmorphone PCA 30 MG/30 ML SYRINGE IV SCH (15:41)
[2018-01-19] MEDS ORDERED: ALUMINUM/MAGNES/SIMETH MAX STR 30 ML UDCUP PO PRN (17:48)
[2018-01-19 18:39] LABS: Apearance,Urine Slightly Hazy (Clear); Bilirubin,Urine Negative (Negative); Blood, Urine Small mg/dL (Negative); Glucose,Urine (UA) Negative (Negative); Ketones,Urine Negative (Negative); Mucus,Urine Occasional /LPF (Occasional); Nitrite,Urine Negative (Negative); Protein,Urine Negative; Urine Color Yellow (Yellow); Urine Urobilinogen < 2.0 EU/DL (0.2-1.0); WBC,Urine 2 /HPF (0-6)
[2018-01-19] MEDS: MIRTAZAPINE 30 MG TABLET PO SCH (19:31)
[2018-01-19] MEDS: MELATONIN 3 MG TABLET PO SCH (21:08)
[2018-01-20] MEDS: LEVOTHYROXINE 100 MCG TABLET PO SCH (06:21)
[2018-01-20] MEDS: ENOXAPARIN 40 MG/0.4 ML SYRINGE SUBCUT SCH (06:21)
[2018-01-20 07:44] LABS: Basophils # 0.1 10*3/uL (0.0-0.2); Basophils % 0.3 % (0.0-0.8); Eosinophils # 0.1 10*3/uL (0.0-0.87); Eosinophils % 0.2 % (0.00-10.9); Hematocrit 36.3 VOL% (35.7-47.0); Hemoglobin 12.1 GM/DL (12.0-16.0); Immature Granulocytes % 4.6 %; Lymphocytes # 1.3 10*3/uL (1.4-4.0); Lymphocytes % 3.8 % (21.3-54.2); Mean Corpuscular HGB Conc 33.3 GM/DL (32-36); Mean Corpuscular Hemoglobin 29 PG (27-34); Mean Corpuscular Volume 87.9 FL (87-102); Monocytes # 1.9 10*3/uL (0.11-0.8); Monocytes % 5.8 % (1.7-12.7); Neutrophils % 85.3 % (38.7-73.9); Platelet Count 735 T/CUMM (130-400); Red Blood Count 4.13 MC/CUMM (3.8-5.5); White Blood Count 32.8 T/CUMM (4-12)
[2018-01-20] MEDS: PANTOPRAZOLE 40 MG TABLET PO SCH (08:01)
[2018-01-20] MEDS: MEGESTROL 40 MG TABLET PO SCH ×2 (08:01→20:45)
[2018-01-20] MEDS: ATENOLOL 50 MG TABLET PO SCH ×2 (08:01→20:45)
[2018-01-20] MEDS: SIMVASTATIN 40 MG TABLET PO SCH (08:01)
[2018-01-20] MEDS: hydroCHLOROthiazide 25 MG TABLET PO SCH (08:01)
[2018-01-20 08:11] LABS: Band Neutrophils 2 % (0-10); Eosinophils 1 % (0-10); Hypochromasia 1+; Lymphocytes 1 % (20-55); Platelet Estimate Increased; Segmented Neutrophils 89 % (50-85); Total Cells Counted 100
[2018-01-20 08:12] LABS: Macrocytosis Slight; Osmolality,Calculated 273.2 MOS/KG (273-304); Potassium 4.3 MMOL/L (3.5-5.1)
[2018-01-20] MEDS: ERTAPENEM 1,000 MG in SODIUM CHLORIDE 0.9% 100 ML IV SCH (11:34)
[2018-01-20] MEDS: HYDROmorphone PCA 30 MG/30 ML SYRINGE IV SCH (13:35)
[2018-01-20] MEDS ORDERED: GLUCAGON 1 MG VIAL IM PRN (13:39)
[2018-01-20] MEDS ORDERED: DEXTROSE 50% 25 GM/50 ML VIAL IV PRN (13:39)
[2018-01-20] MEDS: FAT EMULSION 20% 250 ML IV SCH (16:43)
[2018-01-20] MEDS ORDERED: DEXTROSE 10% 1,000 ML IV PRN (17:00)
[2018-01-20] MEDS: DEXT 5% NACL 0.45% KCL 20 MEQ 20 MEQ/1,000 ML BAG IV SCH (17:20)
[2018-01-20 17:24] LABS: Basophils # 0.1 10*3/uL (0.0-0.2); Basophils % 0.2 % (0.0-0.8); Eosinophils # 0.1 10*3/uL (0.0-0.87); Eosinophils % 0.4 % (0.00-10.9); Hematocrit 30.2 VOL% (35.7-47.0); Immature Granulocytes % 4.9 %; Immature Granulocytes Absolute 1.31 #; Lymphocytes # 1.4 10*3/uL (1.4-4.0); Mean Corpuscular HGB Conc 33.1 GM/DL (32-36); Mean Corpuscular Hemoglobin 29 PG (27-34); Mean Corpuscular Volume 88.3 FL (87-102); Mean Platelet Volume 9.9 FL (9.6-12.0); Monocytes # 1.7 10*3/uL (0.11-0.8); Monocytes % 6.4 % (1.7-12.7); Neutrophils # 22.4 10*3/uL (1.4-7.4); Neutrophils % 83.1 % (38.7-73.9); Platelet Count 601 T/CUMM (130-400); Red Blood Count 3.42 MC/CUMM (3.8-5.5); Red Cell Distribution Width 15.1 % (9.3-17.3)
[2018-01-20] MEDS: [UNRECOGNIZED DRUG - OTHER] IV SCH (18:17)
[2018-01-20] MEDS: ELECTROLYTE IV SCH (18:17)
[2018-01-20] MEDS: AMINO ACIDS IV SCH (18:17)
[2018-01-20] MEDS: MULTIVITAMIN IV SCH (18:17)
[2018-01-20] MEDS: INSULIN REGULAR 100 UNIT/ML SUBCUT SCH ×2 (18:50→23:23)
[2018-01-20 20:00] LABS: Eosinophils 1 % (0-10); Platelet Estimate Increased; Polychromasia Few; Segmented Neutrophils 94 % (50-85); Total Cells Counted 100
[2018-01-20] MEDS: MELATONIN 3 MG TABLET PO SCH (20:45)
[2018-01-20] MEDS: MIRTAZAPINE 30 MG TABLET PO SCH (20:45)
[2018-01-21 03:11] LABS: Basophils # 0.1 10*3/uL (0.0-0.2); Basophils % 0.2 % (0.0-0.8); Eosinophils # 0.3 10*3/uL (0.0-0.87); Eosinophils % 1.1 % (0.00-10.9); Hemoglobin 9.3 GM/DL (12.0-16.0); Immature Granulocytes % 6.4 %; Immature Granulocytes Absolute 1.86 #; Lymphocytes # 1.4 10*3/uL (1.4-4.0); Lymphocytes % 4.9 % (21.3-54.2); Mean Corpuscular HGB Conc 32.1 GM/DL (32-36); Mean Corpuscular Hemoglobin 30 PG (27-34); Mean Corpuscular Volume 92.1 FL (87-102); Mean Platelet Volume 9.8 FL (9.6-12.0); Monocytes # 1.9 10*3/uL (0.11-0.8); Monocytes % 6.7 % (1.7-12.7); NRBC # 0.02 10*3/uL; Neutrophils # 23.4 10*3/uL (1.4-7.4); Neutrophils % 80.7 % (38.7-73.9); Platelet Count 544 T/CUMM (130-400); Red Blood Count 3.15 MC/CUMM (3.8-5.5); Red Cell Distribution Width 15.2 % (9.3-17.3)
[2018-01-21 03:34] LABS: Band Neutrophils 6 % (0-10); Eosinophils 1 % (0-10); Lymphocytes 8 % (20-55); Reactive Lymphocytes 2+; Segmented Neutrophils 80 % (50-85)
[2018-01-21 03:35] LABS: Giant Platelets Few; Hypochromasia 1+; Platelet Estimate Increased; Polychromasia Few
[2018-01-21 03:36] LABS: Total Cells Counted 100
[2018-01-21 03:51] LABS: Calcium 7.7 MG/DL (8.5-10.1); Osmolality,Calculated 276.1 MOS/KG (273-304); Potassium 3.8 MMOL/L (3.5-5.1)
[2018-01-21 03:55] LABS: Prealbumin 5.1 MG/DL (20-40)
[2018-01-21] MEDS: INSULIN REGULAR 100 UNIT/ML SUBCUT SCH ×4 (06:14→23:02)
[2018-01-21] MEDS: ENOXAPARIN 40 MG/0.4 ML SYRINGE SUBCUT SCH (06:14)
[2018-01-21] MEDS: LEVOTHYROXINE 100 MCG TABLET PO SCH (06:14)
[2018-01-21] MEDS: MAGNESIUM SULF RIDER 2 GM in PREMIX 1 EACH IV PRN (06:14)
[2018-01-21] MEDS: POTASSIUM CHLORIDE RIDER 20 MEQ in PREMIX 1 EACH IV PRN (06:15)
[2018-01-21] MEDS: SIMVASTATIN 40 MG TABLET PO SCH (08:04)
[2018-01-21] MEDS: ATENOLOL 50 MG TABLET PO SCH ×2 (08:04→20:34)
[2018-01-21] MEDS: hydroCHLOROthiazide 25 MG TABLET PO SCH (08:04)
[2018-01-21] MEDS: MEGESTROL 40 MG TABLET PO SCH ×2 (08:04→20:58)
[2018-01-21] MEDS: PANTOPRAZOLE 40 MG TABLET PO SCH (08:04)
[2018-01-21] MEDS: ERTAPENEM 1,000 MG in SODIUM CHLORIDE 0.9% 100 ML IV SCH (08:14)
[2018-01-21] MEDS: DEXT 5% NACL 0.45% KCL 20 MEQ 20 MEQ/1,000 ML BAG IV SCH (10:56)
[2018-01-21] MEDS: AMINO ACIDS IV SCH (14:18)
[2018-01-21] MEDS: ELECTROLYTE IV SCH (14:18)
[2018-01-21] MEDS: [UNRECOGNIZED DRUG - OTHER] IV SCH (14:18)
[2018-01-21] MEDS: MULTIVITAMIN IV SCH (14:18)
[2018-01-21] MEDS: FAT EMULSION 20% 250 ML IV SCH (14:29)
[2018-01-21 15:16] LABS: Basophils # 0.1 10*3/uL (0.0-0.2); Basophils % 0.2 % (0.0-0.8); Eosinophils # 0.2 10*3/uL (0.0-0.87); Eosinophils % 0.9 % (0.00-10.9); Hematocrit 27.7 VOL% (35.7-47.0); Hemoglobin 10.1 GM/DL (12.0-16.0); Immature Granulocytes % 6.6 %; Immature Granulocytes Absolute 1.61 #; Lymphocytes # 1.2 10*3/uL (1.4-4.0); Lymphocytes % 4.9 % (21.3-54.2); Mean Corpuscular HGB Conc 36.5 GM/DL (32-36); Mean Corpuscular Hemoglobin 35 PG (27-34); Mean Corpuscular Volume 96.2 FL (87-102); Mean Platelet Volume 10.2 FL (9.6-12.0); Monocytes # 1.3 10*3/uL (0.11-0.8); Monocytes % 5.4 % (1.7-12.7); NRBC # 0.02 10*3/uL; Neutrophils # 20.2 10*3/uL (1.4-7.4); Platelet Count 473 T/CUMM (130-400); Red Blood Count 2.88 MC/CUMM (3.8-5.5); Red Cell Distribution Width 15.9 % (9.3-17.3); White Blood Count 24.6 T/CUMM (4-12)
[2018-01-21] MEDS ORDERED: PHENYLEPHRINE DRIP 0 MG/0 ML PREMIX IV ONE (16:01)
[2018-01-21 16:09] LABS: PT Patient Result 10.5 SECS
[2018-01-21 16:24] LABS: Band Neutrophils 8 % (0-10); Eosinophils 1 % (0-10); Lymphocytes 6 % (20-55); Segmented Neutrophils 81 % (50-85); Total Cells Counted 100
[2018-01-21 16:31] LABS: Calcium 7.3 MG/DL (8.5-10.1); Potassium 3.6 MMOL/L (3.5-5.1)
[2018-01-21 16:44] LABS: Hypochromasia 1+
[2018-01-21 16:46] LABS: Giant Platelets Few; Ovalocytes Slight; Platelet Estimate Increased
[2018-01-21] MEDS: PROPOFOL 1,000 MG/100 ML BOTTLE IV SCH (17:25)
[2018-01-21] MEDS ORDERED: ETOMIDATE 40 MG/20 ML VIAL IV ONE (17:33)
[2018-01-21] MEDS ORDERED: fentaNYL 100 MCG/2 ML VIAL ONE (17:33)
[2018-01-21] MEDS ORDERED: SEVOFLURANE 1 UNIT/15 MINUTE INH ONE (17:33)
[2018-01-21] MEDS ORDERED: ROCURONIUM 100 MG/10 ML VIAL IV ONE (17:33)
[2018-01-21 17:43] LABS: ABG Base Excess -1.2 MMOL/L (-2.5-2.5); ABG HCO3 23.2 MMOL/L (20-26); ABG Oxygen Saturation 99.2 % (95-100); ABG PCO2 37.7 MM HG (35-48); ABG PH 7.407 (7.35-7.45); ABG PO2 277.3 MM HG (80-95); ABG TCO2 24.4 MMOL/L (23-27); Allen Test Positive; Pt O2 Delivery Device Ventilator
[2018-01-21] MEDS ORDERED: PANTOPRAZOLE INJ 80 MG in SODIUM CHLORIDE 0.9% 100 ML IV ONE (17:44)
[2018-01-21] MEDS ORDERED: SODIUM CHLORIDE 0.9% 1,000 ML IV PRN (17:52)
[2018-01-21] MEDS: SUCRALFATE 1 GM/10 ML UDCUP PO SCH (17:53)
[2018-01-21 18:17] LABS: Basophils % 0.1 % (0.0-0.8); Eosinophils # 0.2 10*3/uL (0.0-0.87); Eosinophils % 0.9 % (0.00-10.9); Hematocrit 27.1 VOL% (35.7-47.0); Hemoglobin 9.1 GM/DL (12.0-16.0); Immature Granulocytes % 6.5 %; Immature Granulocytes Absolute 1.75 #; Lymphocytes # 1.2 10*3/uL (1.4-4.0); Lymphocytes % 4.6 % (21.3-54.2); Mean Corpuscular HGB Conc 33.6 GM/DL (32-36); Mean Corpuscular Hemoglobin 31 PG (27-34); Mean Corpuscular Volume 90.9 FL (87-102); Monocytes # 1.4 10*3/uL (0.11-0.8); Monocytes % 5.3 % (1.7-12.7); NRBC # 0.02 10*3/uL; Neutrophils # 22.2 10*3/uL (1.4-7.4); Neutrophils % 82.6 % (38.7-73.9); Platelet Count 468 T/CUMM (130-400); Red Blood Count 2.98 MC/CUMM (3.8-5.5); Red Cell Distribution Width 15.3 % (9.3-17.3); White Blood Count 26.9 T/CUMM (4-12)
[2018-01-21 18:47] LABS: Calcium 7.1 MG/DL (8.5-10.1); Osmolality,Calculated 275.2 MOS/KG (273-304); Potassium 3.6 MMOL/L (3.5-5.1)
[2018-01-21 19:04] LABS: Band Neutrophils 10 % (0-10); Eosinophils 4 % (0-10); Lymphocytes 5 % (20-55); Platelet Estimate Increased; Segmented Neutrophils 77 % (50-85); Total Cells Counted 100
[2018-01-21 19:06] LABS: Hypochromasia 1+; Polychromasia Slight
[2018-01-21] MEDS: PANTOPRAZOLE 40 MG VIAL IV SCH (20:34)
[2018-01-21] MEDS: MELATONIN 3 MG TABLET PO SCH (20:34)
[2018-01-21] MEDS ORDERED: ALBUMIN 5% 25 GM in PREMIX 1 EACH IV ONE (20:35)
[2018-01-21] MEDS: MIRTAZAPINE 30 MG TABLET PO SCH (20:58)
[2018-01-22] MEDS: PROPOFOL 1,000 MG/100 ML BOTTLE IV SCH ×3 (03:25→17:41)
[2018-01-22 03:57] LABS: Basophils % 0.1 % (0.0-0.8); Eosinophils # 0.2 10*3/uL (0.0-0.87); Eosinophils % 0.8 % (0.00-10.9); Hemoglobin 8.2 GM/DL (12.0-16.0); Immature Granulocytes % 8.6 %; Immature Granulocytes Absolute 1.77 #; Lymphocytes # 1.1 10*3/uL (1.4-4.0); Lymphocytes % 5.3 % (21.3-54.2); Mean Corpuscular HGB Conc 32.8 GM/DL (32-36); Mean Corpuscular Hemoglobin 30 PG (27-34); Mean Corpuscular Volume 90.9 FL (87-102); Mean Platelet Volume 10.1 FL (9.6-12.0); Monocytes # 0.4 10*3/uL (0.11-0.8); Monocytes % 1.9 % (1.7-12.7); NRBC # 0.06 10*3/uL; Neutrophils # 17.1 10*3/uL (1.4-7.4); Neutrophils % 83.3 % (38.7-73.9); Platelet Count 419 T/CUMM (130-400); Red Blood Count 2.75 MC/CUMM (3.8-5.5); Red Cell Distribution Width 15.4 % (9.3-17.3); White Blood Count 20.6 T/CUMM (4-12)
[2018-01-22 04:17] LABS: ABG Base Excess -0.3 MMOL/L (-2.5-2.5); ABG HCO3 24.2 MMOL/L (20-26); ABG Oxygen Saturation 99.1 % (95-100); ABG PCO2 26.8 MM HG (35-48); ABG PH 7.521 (7.35-7.45); ABG TCO2 20.2 MMOL/L (23-27); Allen Test Positive; Pt O2 Delivery Device Ventilator
[2018-01-22 04:23] LABS: Calcium 7.6 MG/DL (8.5-10.1)
[2018-01-22] MEDS: POTASSIUM CHLORIDE RIDER 20 MEQ in PREMIX 1 EACH IV PRN ×2 (05:07→07:03)
[2018-01-22 05:14] LABS: Band Neutrophils 10 % (0-10); Eosinophils 2 % (0-10); Lymphocytes 2 % (20-55); Metamyelocytes 1 %; Segmented Neutrophils 84 % (50-85); Total Cells Counted 100
[2018-01-22 05:15] LABS: Hypochromasia Slight; Microcytosis 1+
[2018-01-22] MEDS: INSULIN REGULAR 100 UNIT/ML SUBCUT SCH ×3 (05:56→20:01)
[2018-01-22] MEDS: ENOXAPARIN 40 MG/0.4 ML SYRINGE SUBCUT SCH (05:56)
[2018-01-22] MEDS: LEVOTHYROXINE 100 MCG TABLET PO SCH (06:03)
[2018-01-22] MEDS ORDERED: SODIUM CHLORIDE 0.9% 1,000 ML IV PRN (08:37)
[2018-01-22] MEDS ORDERED: LACTATED RINGERS 1,000 ML IV ONE (09:00)
[2018-01-22] MEDS: POTASSIUM CHLORIDE RIDER 10 MEQ in PREMIX 1 EACH IV PRN (09:03)
[2018-01-22] MEDS: MEGESTROL 40 MG TABLET PO SCH ×2 (09:13→20:03)
[2018-01-22] MEDS: hydroCHLOROthiazide 25 MG TABLET PO SCH (09:13)
[2018-01-22] MEDS: SIMVASTATIN 40 MG TABLET PO SCH (09:13)
[2018-01-22] MEDS: SUCRALFATE 1 GM/10 ML UDCUP PO SCH ×2 (09:14→15:54)
[2018-01-22] MEDS: PANTOPRAZOLE 40 MG VIAL IV SCH ×2 (09:14→20:07)
[2018-01-22] MEDS: ATENOLOL 50 MG TABLET PO SCH ×2 (09:14→20:03)
[2018-01-22] MEDS: ERTAPENEM 1,000 MG in SODIUM CHLORIDE 0.9% 100 ML IV SCH (09:17)
[2018-01-22 09:52] LABS: Basophils % 0.1 % (0.0-0.8); Eosinophils # 0.1 10*3/uL (0.0-0.87); Eosinophils % 0.6 % (0.00-10.9); Hematocrit 24.9 VOL% (35.7-47.0); Hemoglobin 7.9 GM/DL (12.0-16.0); Immature Granulocytes % 8.2 %; Immature Granulocytes Absolute 1.71 #; Lymphocytes # 1.2 10*3/uL (1.4-4.0); Lymphocytes % 5.7 % (21.3-54.2); Mean Corpuscular HGB Conc 31.7 GM/DL (32-36); Mean Corpuscular Hemoglobin 30 PG (27-34); Mean Corpuscular Volume 92.9 FL (87-102); Mean Platelet Volume 10.3 FL (9.6-12.0); Monocytes # 0.3 10*3/uL (0.11-0.8); Monocytes % 1.6 % (1.7-12.7); NRBC # 0.03 10*3/uL; Neutrophils # 17.4 10*3/uL (1.4-7.4); Neutrophils % 83.8 % (38.7-73.9); Platelet Count 420 T/CUMM (130-400); Red Blood Count 2.68 MC/CUMM (3.8-5.5); Red Cell Distribution Width 15.5 % (9.3-17.3); White Blood Count 20.8 T/CUMM (4-12)
[2018-01-22 10:14] LABS: Band Neutrophils 21 % (0-10); Lymphocytes 7 % (20-55); Segmented Neutrophils 69 % (50-85); Total Cells Counted 100
[2018-01-22 10:15] LABS: Hypochromasia Slight; Microcytosis 1+; Platelet Estimate Increased; Polychromasia Slight
[2018-01-22] MEDS: AMINO ACIDS IV SCH (11:00)
[2018-01-22] MEDS: MULTIVITAMIN IV SCH (11:00)
[2018-01-22] MEDS: [UNRECOGNIZED DRUG - OTHER] IV SCH (11:00)
[2018-01-22] MEDS: ELECTROLYTE IV SCH (11:00)
[2018-01-22] MEDS: FAT EMULSION 20% 250 ML IV SCH (14:59)
[2018-01-22 15:21] LABS: Hematocrit 30.7 VOL% (35.7-47.0)
[2018-01-22 15:24] LABS: Hemoglobin 10.1 GM/DL (12.0-16.0)
[2018-01-22] MEDS: MIRTAZAPINE 30 MG TABLET PO SCH (20:02)
[2018-01-22] MEDS: MELATONIN 3 MG TABLET PO SCH (20:03)
[2018-01-23] MEDS: INSULIN REGULAR 100 UNIT/ML SUBCUT SCH ×4 (00:36→18:30)
[2018-01-23] MEDS: PROPOFOL 1,000 MG/100 ML BOTTLE IV SCH ×3 (02:45→17:14)
[2018-01-23 03:42] LABS: ABG Base Excess -1.1 MMOL/L (-2.5-2.5); ABG HCO3 20.1 MMOL/L (20-26); ABG Oxygen Saturation 98.6 % (95-100); ABG PCO2 23.7 MM HG (35-48); ABG PH 7.547 (7.35-7.45); ABG PO2 149.3 MM HG (80-95); ABG TCO2 20.9 MMOL/L (23-27)
[2018-01-23 04:02] LABS: Basophils # 0.1 10*3/uL (0.0-0.2); Basophils % 0.3 % (0.0-0.8); Eosinophils # 0.2 10*3/uL (0.0-0.87); Eosinophils % 0.8 % (0.00-10.9); Hematocrit 29.6 VOL% (35.7-47.0); Hemoglobin 9.9 GM/DL (12.0-16.0); Immature Granulocytes % 9.1 %; Immature Granulocytes Absolute 2.34 #; Lymphocytes # 1.1 10*3/uL (1.4-4.0); Lymphocytes % 4.1 % (21.3-54.2); Mean Corpuscular HGB Conc 33.4 GM/DL (32-36); Mean Corpuscular Hemoglobin 30 PG (27-34); Mean Corpuscular Volume 88.9 FL (87-102); Mean Platelet Volume 10.6 FL (9.6-12.0); Monocytes # 0.5 10*3/uL (0.11-0.8); Monocytes % 2.1 % (1.7-12.7); Neutrophils # 21.5 10*3/uL (1.4-7.4); Neutrophils % 83.6 % (38.7-73.9); Platelet Count 348 T/CUMM (130-400); Red Blood Count 3.33 MC/CUMM (3.8-5.5); Red Cell Distribution Width 15.3 % (9.3-17.3); White Blood Count 25.8 T/CUMM (4-12)
[2018-01-23 04:33] LABS: Calcium 7.6 MG/DL (8.5-10.1); Osmolality,Calculated 282.5 MOS/KG (273-304); Potassium 2.9 MMOL/L (3.5-5.1)
[2018-01-23] MEDS: POTASSIUM CHLORIDE RIDER 20 MEQ in PREMIX 1 EACH IV PRN ×2 (05:11→07:14)
[2018-01-23 05:19] LABS: Band Neutrophils 7 % (0-10); Eosinophils 1 % (0-10); Lymphocytes 3 % (20-55); Segmented Neutrophils 89 % (50-85); Total Cells Counted 100
[2018-01-23 05:20] LABS: Hypochromasia 1+; Microcytosis 1+; Platelet Estimate Adequate
[2018-01-23] MEDS: LEVOTHYROXINE 100 MCG VIAL IV SCH (06:07)
[2018-01-23] MEDS: ENOXAPARIN 40 MG/0.4 ML SYRINGE SUBCUT SCH (06:51)
[2018-01-23] MEDS: MULTIVITAMIN IV SCH (08:15)
[2018-01-23] MEDS: [UNRECOGNIZED DRUG - OTHER] IV SCH (08:15)
[2018-01-23] MEDS: ELECTROLYTE IV SCH (08:15)
[2018-01-23] MEDS: AMINO ACIDS IV SCH (08:15)
[2018-01-23] MEDS: hydroCHLOROthiazide 25 MG TABLET PO SCH (09:10)
[2018-01-23] MEDS: SIMVASTATIN 40 MG TABLET PO SCH ×2 (09:10→11:49)
[2018-01-23] MEDS: SUCRALFATE 1 GM/10 ML UDCUP PO SCH ×3 (09:10→17:15)
[2018-01-23] MEDS: MEGESTROL 40 MG TABLET PO SCH ×3 (09:10→22:23)
[2018-01-23] MEDS: ATENOLOL 50 MG TABLET PO SCH ×2 (09:10→22:23)
[2018-01-23] MEDS: PANTOPRAZOLE 40 MG VIAL IV SCH ×2 (09:11→22:23)
[2018-01-23] MEDS: ERTAPENEM 1,000 MG in SODIUM CHLORIDE 0.9% 100 ML IV SCH (09:11)
[2018-01-23] MEDS: POTASSIUM CHLORIDE RIDER 10 MEQ in PREMIX 1 EACH IV PRN (09:38)
[2018-01-23] MEDS: FAT EMULSION 20% 250 ML IV SCH (15:10)
[2018-01-23] MEDS: MIRTAZAPINE 30 MG TABLET PO SCH (18:40)
[2018-01-23] MEDS: MELATONIN 3 MG TABLET PO SCH (22:23)
[2018-01-24] MEDS: INSULIN REGULAR 100 UNIT/ML SUBCUT SCH ×4 (00:15→19:02)
[2018-01-24] MEDS: PROPOFOL 1,000 MG/100 ML BOTTLE IV SCH ×2 (01:15→16:49)
[2018-01-24 03:45] LABS: ABG Base Excess -1.7 MMOL/L (-2.5-2.5); ABG Oxygen Saturation 99.2 % (95-100); ABG PCO2 31.6 MM HG (35-48); ABG TCO2 18.7 MMOL/L (23-27)
[2018-01-24 05:20] LABS: Basophils # 0.1 10*3/uL (0.0-0.2); Basophils % 0.5 % (0.0-0.8); Eosinophils # 0.3 10*3/uL (0.0-0.87); Eosinophils % 1.3 % (0.00-10.9); Hematocrit 30.5 VOL% (35.7-47.0); Hemoglobin 9.8 GM/DL (12.0-16.0); Immature Granulocytes % 9.7 %; Immature Granulocytes Absolute 2.25 #; Lymphocytes # 0.9 10*3/uL (1.4-4.0); Lymphocytes % 3.7 % (21.3-54.2); Mean Corpuscular HGB Conc 32.1 GM/DL (32-36); Mean Corpuscular Hemoglobin 29 PG (27-34); Mean Platelet Volume 10.3 FL (9.6-12.0); Monocytes # 0.8 10*3/uL (0.11-0.8); Monocytes % 3.4 % (1.7-12.7); Neutrophils # 18.9 10*3/uL (1.4-7.4); Neutrophils % 81.4 % (38.7-73.9); Platelet Count 405 T/CUMM (130-400); Red Blood Count 3.35 MC/CUMM (3.8-5.5); Red Cell Distribution Width 15.7 % (9.3-17.3); White Blood Count 23.2 T/CUMM (4-12)
[2018-01-24 05:38] LABS: Calcium 7.5 MG/DL (8.5-10.1); Osmolality,Calculated 290.8 MOS/KG (273-304); Potassium 3.5 MMOL/L (3.5-5.1)
[2018-01-24 05:53] LABS: Band Neutrophils 10 % (0-10); Eosinophils 2 % (0-10); Lymphocytes 5 % (20-55); Segmented Neutrophils 77 % (50-85); Total Cells Counted 100
[2018-01-24 05:54] LABS: Hypochromasia 1+; Microcytosis 1+; Platelet Estimate Increased; Polychromasia Slight
[2018-01-24] MEDS: POTASSIUM CHLORIDE RIDER 20 MEQ in PREMIX 1 EACH IV PRN ×2 (06:20→08:39)
[2018-01-24] MEDS: ENOXAPARIN 40 MG/0.4 ML SYRINGE SUBCUT SCH (06:23)
[2018-01-24 06:24] LABS: Prealbumin 5.9 MG/DL (20-40)
[2018-01-24] MEDS ORDERED: FUROSEMIDE 40 MG/4 ML VIAL IV ONE (07:28)
[2018-01-24] MEDS: ATENOLOL 50 MG TABLET PO SCH ×2 (09:25→21:35)
[2018-01-24] MEDS: SIMVASTATIN 40 MG TABLET PO SCH (09:25)
[2018-01-24] MEDS: LEVOTHYROXINE 100 MCG VIAL IV SCH (09:25)
[2018-01-24] MEDS: MEGESTROL 40 MG TABLET PO SCH ×2 (09:25→21:47)
[2018-01-24] MEDS: hydroCHLOROthiazide 25 MG TABLET PO SCH (09:25)
[2018-01-24] MEDS: PANTOPRAZOLE 40 MG VIAL IV SCH ×2 (09:26→21:48)
[2018-01-24] MEDS: SUCRALFATE 1 GM/10 ML UDCUP PO SCH ×2 (09:28→17:49)
[2018-01-24] MEDS: ERTAPENEM 1,000 MG in SODIUM CHLORIDE 0.9% 100 ML IV SCH (09:31)
[2018-01-24] MEDS: ELECTROLYTE IV SCH ×2 (12:06→19:07)
[2018-01-24] MEDS: MULTIVITAMIN IV SCH ×2 (12:06→19:07)
[2018-01-24] MEDS: [UNRECOGNIZED DRUG - OTHER] IV SCH (12:06)
[2018-01-24] MEDS: AMINO ACIDS IV SCH (12:06)
[2018-01-24] MEDS: [UNRECOGNIZED DRUG - OTHER] IV SCH (19:07)
[2018-01-24] MEDS: POTASSIUM PHOSPHATE IV SCH (19:07)
[2018-01-24] MEDS: MELATONIN 3 MG TABLET PO SCH (21:47)
[2018-01-24] MEDS: MIRTAZAPINE 30 MG TABLET PO SCH (21:47)
[2018-01-25] MEDS: INSULIN REGULAR 100 UNIT/ML SUBCUT SCH ×4 (00:35→18:58)
[2018-01-25] MEDS: PROPOFOL 1,000 MG/100 ML BOTTLE IV SCH (04:00)
[2018-01-25 04:15] LABS: ABG HCO3 22.2 MMOL/L (20-26); ABG Oxygen Saturation 98.1 % (95-100); ABG PCO2 31.7 MM HG (35-48); ABG PH 7.464 (7.35-7.45); ABG PO2 120.7 MM HG (80-95); ABG TCO2 23.2 MMOL/L (23-27); Allen Test Positive; Pt O2 Delivery Device Ventilator
[2018-01-25 06:12] LABS: Basophils # 0.1 10*3/uL (0.0-0.2); Basophils % 0.4 % (0.0-0.8); Eosinophils # 0.3 10*3/uL (0.0-0.87); Eosinophils % 1.4 % (0.00-10.9); Hematocrit 30.7 VOL% (35.7-47.0); Immature Granulocytes % 8.4 %; Immature Granulocytes Absolute 1.68 #; Lymphocytes # 1.1 10*3/uL (1.4-4.0); Lymphocytes % 5.5 % (21.3-54.2); Mean Corpuscular HGB Conc 32.6 GM/DL (32-36); Mean Corpuscular Hemoglobin 30 PG (27-34); Mean Corpuscular Volume 90.8 FL (87-102); Monocytes % 5.1 % (1.7-12.7); Neutrophils # 15.8 10*3/uL (1.4-7.4); Neutrophils % 79.2 % (38.7-73.9); Platelet Count 520 T/CUMM (130-400); Red Blood Count 3.38 MC/CUMM (3.8-5.5); Red Cell Distribution Width 15.9 % (9.3-17.3); White Blood Count 19.9 T/CUMM (4-12)
[2018-01-25 06:13] LABS: Calcium 7.8 MG/DL (8.5-10.1); Potassium 4.3 MMOL/L (3.5-5.1)
[2018-01-25 06:32] LABS: Anisocytosis Slight; Band Neutrophils 31 % (0-10); Eosinophils 1 % (0-10); Lymphocytes 4 % (20-55); Platelet Estimate Increased; Polychromasia Slight; Segmented Neutrophils 59 % (50-85); Total Cells Counted 100
[2018-01-25 06:33] LABS: Giant Platelets Few
[2018-01-25] MEDS: LEVOTHYROXINE 100 MCG VIAL IV SCH (06:46)
[2018-01-25] MEDS: ENOXAPARIN 40 MG/0.4 ML SYRINGE SUBCUT SCH (06:46)
[2018-01-25] MEDS: PANTOPRAZOLE 40 MG VIAL IV SCH ×2 (09:09→20:20)
[2018-01-25] MEDS: SUCRALFATE 1 GM/10 ML UDCUP PO SCH ×2 (09:09→17:12)
[2018-01-25] MEDS: HYDROmorphone 2 MG/1 ML VIAL IV PRN ×5 (09:12→20:20)
[2018-01-25] MEDS: MEGESTROL 40 MG TABLET PO SCH ×2 (09:13→20:21)
[2018-01-25] MEDS: ATENOLOL 50 MG TABLET PO SCH ×2 (09:13→20:21)
[2018-01-25] MEDS: hydroCHLOROthiazide 25 MG TABLET PO SCH (09:13)
[2018-01-25] MEDS: SIMVASTATIN 40 MG TABLET PO SCH (09:13)
[2018-01-25] MEDS: ACETAMINOPHEN 325 MG TABLET PO PRN (09:14)
[2018-01-25] MEDS: ERTAPENEM 1,000 MG in SODIUM CHLORIDE 0.9% 100 ML IV SCH (09:17)
[2018-01-25] MEDS ORDERED: AMIODARONE 150 MG/3 ML VIAL ONE ×2 (15:09→17:18)
[2018-01-25] MEDS ORDERED: AMIODARONE INJ 150 MG in DEXTROSE 5% 100 ML IV ONE ×2 (15:10→17:17)
[2018-01-25] MEDS ORDERED: SERTRALINE 25 MG TABLET PO ONE (15:17)
[2018-01-25] MEDS: FUROSEMIDE 20 MG/2 ML VIAL IV SCH (16:11)
[2018-01-25] MEDS: AMIODARONE 200 MG TABLET PO SCH ×2 (16:16→20:22)
[2018-01-25] MEDS ORDERED: AMIODARONE INJ 450 MG in DEXTROSE 5% 241 ML IV SCH (17:00)
[2018-01-25] MEDS: POTASSIUM PHOSPHATE IV SCH (17:00)
[2018-01-25] MEDS: ELECTROLYTE IV SCH (17:00)
[2018-01-25] MEDS: MULTIVITAMIN IV SCH (17:00)
[2018-01-25] MEDS: [UNRECOGNIZED DRUG - OTHER] IV SCH (17:00)
[2018-01-25] MEDS ORDERED: DIGOXIN 0.5 MG/2 ML AMP IV PRN (17:27)
[2018-01-25] MEDS ORDERED: PHENYLEPHRINE DRIP 40 MG/250 ML PREMIX IV ONE (18:11)
[2018-01-25] MEDS: PHENYLEPHRINE DRIP 40 MG/250 ML PREMIX IV PRN (19:17)
[2018-01-25] MEDS: MELATONIN 3 MG TABLET PO SCH (20:21)
[2018-01-25] MEDS: SERTRALINE 25 MG TABLET PO SCH (20:21)
[2018-01-25] MEDS: MIRTAZAPINE 30 MG TABLET PO SCH (20:21)
[2018-01-26] MEDS: AMIODARONE INJ 450 MG in DEXTROSE 5% 241 ML IV SCH ×2 (00:30→15:52)
[2018-01-26] MEDS: INSULIN REGULAR 100 UNIT/ML SUBCUT SCH ×4 (02:01→18:01)
[2018-01-26] MEDS: PROPOFOL 1,000 MG/100 ML BOTTLE IV SCH ×2 (02:01→06:43)
[2018-01-26] MEDS: HYDROmorphone 2 MG/1 ML VIAL IV PRN ×6 (04:25→18:15)
[2018-01-26] MEDS: ENOXAPARIN 40 MG/0.4 ML SYRINGE SUBCUT SCH (06:39)
[2018-01-26] MEDS: LEVOTHYROXINE 100 MCG VIAL IV SCH (06:39)
[2018-01-26] MEDS: ACETAMINOPHEN 325 MG TABLET PO PRN (07:00)
[2018-01-26 07:38] LABS: Basophils # 0.1 10*3/uL (0.0-0.2); Basophils % 0.5 % (0.0-0.8); Eosinophils # 0.4 10*3/uL (0.0-0.87); Eosinophils % 1.6 % (0.00-10.9); Hemoglobin 10.2 GM/DL (12.0-16.0); Immature Granulocytes % 7.5 %; Immature Granulocytes Absolute 1.69 #; Lymphocytes # 1.5 10*3/uL (1.4-4.0); Lymphocytes % 6.6 % (21.3-54.2); Mean Corpuscular HGB Conc 31.9 GM/DL (32-36); Mean Corpuscular Hemoglobin 30 PG (27-34); Mean Corpuscular Volume 93.3 FL (87-102); Mean Platelet Volume 10.4 FL (9.6-12.0); Monocytes # 1.7 10*3/uL (0.11-0.8); Monocytes % 7.4 % (1.7-12.7); Neutrophils # 17.2 10*3/uL (1.4-7.4); Neutrophils % 76.4 % (38.7-73.9); Platelet Count 634 T/CUMM (130-400); Red Blood Count 3.43 MC/CUMM (3.8-5.5); Red Cell Distribution Width 16.2 % (9.3-17.3); White Blood Count 22.6 T/CUMM (4-12)
[2018-01-26 07:52] LABS: Calcium 7.5 MG/DL (8.5-10.1); Osmolality,Calculated 312.7 MOS/KG (273-304); Potassium 5.5 MMOL/L (3.5-5.1)
[2018-01-26 08:04] LABS: Anisocytosis 1+; Band Neutrophils 19 % (0-10); Eosinophils 2 % (0-10); Lymphocytes 7 % (20-55); Macrocytosis Slight; Metamyelocytes 1 %; Myelocytes 1 %; Platelet Estimate Increased; Polychromasia Slight; Segmented Neutrophils 64 % (50-85); Total Cells Counted 100
[2018-01-26] MEDS: SIMVASTATIN 40 MG TABLET PO SCH (08:30)
[2018-01-26] MEDS: ERTAPENEM 1,000 MG in SODIUM CHLORIDE 0.9% 100 ML IV SCH (08:30)
[2018-01-26 08:53] LABS: Calcium 8.1 MG/DL (8.5-10.1); Osmolality,Calculated 288.4 MOS/KG (273-304); Potassium 3.6 MMOL/L (3.5-5.1)
[2018-01-26] MEDS: FUROSEMIDE 20 MG/2 ML VIAL IV SCH (09:21)
[2018-01-26] MEDS: PANTOPRAZOLE 40 MG VIAL IV SCH ×2 (09:22→20:28)
[2018-01-26] MEDS: SUCRALFATE 1 GM/10 ML UDCUP PO SCH ×2 (09:22→17:44)
[2018-01-26] MEDS: ATENOLOL 50 MG TABLET PO SCH ×2 (09:23→20:29)
[2018-01-26] MEDS: AMIODARONE 200 MG TABLET PO SCH ×2 (09:23→20:26)
[2018-01-26] MEDS: MEGESTROL 40 MG TABLET PO SCH ×2 (09:23→20:25)
[2018-01-26] MEDS ORDERED: HEPARIN/NACL 0.9% 2 UNITS/ML 500 ML IV ONE (11:00)
[2018-01-26] MEDS ORDERED: SEVOFLURANE 1 UNIT/15 MINUTE INH ONE (14:01)
[2018-01-26] MEDS ORDERED: MIDAZOLAM 10 MG/2 ML VIAL ONE (14:02)
[2018-01-26] MEDS ORDERED: VECURONIUM 10 MG VIAL IV ONE (14:02)
[2018-01-26] MEDS ORDERED: fentaNYL 100 MCG/2 ML VIAL ONE (14:02)
[2018-01-26] MEDS: MULTIVITAMIN IV SCH (17:29)
[2018-01-26] MEDS: POTASSIUM PHOSPHATE IV SCH (17:29)
[2018-01-26] MEDS: [UNRECOGNIZED DRUG - OTHER] IV SCH (17:29)
[2018-01-26] MEDS: ELECTROLYTE IV SCH (17:29)
[2018-01-26] MEDS: MIRTAZAPINE 30 MG TABLET PO SCH (19:48)
[2018-01-26] MEDS: MELATONIN 3 MG TABLET PO SCH (20:26)
[2018-01-26] MEDS: SERTRALINE 25 MG TABLET PO SCH (20:27)
[2018-01-27] MEDS: INSULIN REGULAR 100 UNIT/ML SUBCUT SCH ×4 (00:11→18:18)
[2018-01-27] MEDS: PROPOFOL 1,000 MG/100 ML BOTTLE IV SCH ×3 (02:00→23:00)
[2018-01-27] MEDS: PHENYLEPHRINE DRIP 40 MG/250 ML PREMIX IV PRN ×2 (02:43→14:18)
[2018-01-27 05:18] LABS: ABG Base Excess -4.7 MMOL/L (-2.5-2.5); ABG HCO3 21.8 MMOL/L (20-26); ABG Oxygen Saturation 98.3 % (95-100); ABG PCO2 45.9 MM HG (35-48); ABG PH 7.295 (7.35-7.45); ABG PO2 137.3 MM HG (80-95); ABG TCO2 23.2 MMOL/L (23-27)
[2018-01-27 05:22] LABS: Basophils # 0.2 10*3/uL (0.0-0.2); Basophils % 0.5 % (0.0-0.8); Eosinophils # 0.1 10*3/uL (0.0-0.87); Eosinophils % 0.1 % (0.00-10.9); Hematocrit 37.1 VOL% (35.7-47.0); Hemoglobin 11.7 GM/DL (12.0-16.0); Immature Granulocytes % 7.5 %; Immature Granulocytes Absolute 2.78 #; Lymphocytes # 1.2 10*3/uL (1.4-4.0); Lymphocytes % 3.2 % (21.3-54.2); Mean Corpuscular HGB Conc 31.5 GM/DL (32-36); Mean Corpuscular Hemoglobin 29 PG (27-34); Mean Corpuscular Volume 93.2 FL (87-102); Mean Platelet Volume 10.1 FL (9.6-12.0); Monocytes # 2.3 10*3/uL (0.11-0.8); Monocytes % 6.2 % (1.7-12.7); Neutrophils # 30.7 10*3/uL (1.4-7.4); Neutrophils % 82.5 % (38.7-73.9); Platelet Count 728 T/CUMM (130-400); Red Blood Count 3.98 MC/CUMM (3.8-5.5); Red Cell Distribution Width 15.6 % (9.3-17.3); White Blood Count 37.2 T/CUMM (4-12)
[2018-01-27 05:36] LABS: Calcium 7.5 MG/DL (8.5-10.1); Potassium 4.8 MMOL/L (3.5-5.1)
[2018-01-27 05:40] LABS: Prealbumin 12.7 MG/DL (20-40)
[2018-01-27 06:13] LABS: Band Neutrophils 4 % (0-10); Lymphocytes 5 % (20-55); Myelocytes 1 %; Segmented Neutrophils 88 % (50-85); Total Cells Counted 100
[2018-01-27] MEDS: ENOXAPARIN 40 MG/0.4 ML SYRINGE SUBCUT SCH (06:13)
[2018-01-27 06:14] LABS: Anisocytosis 1+; Platelet Estimate Increased; Poikilocytosis 1+
[2018-01-27] MEDS: LEVOTHYROXINE 100 MCG VIAL IV SCH (06:14)
[2018-01-27] MEDS: AMIODARONE INJ 450 MG in DEXTROSE 5% 241 ML IV SCH (07:35)
[2018-01-27] MEDS ORDERED: LACTATED RINGERS 500 ML IV ONE (07:45)
[2018-01-27] MEDS: LACTATED RINGERS 1,000 ML IV SCH (08:46)
[2018-01-27] MEDS: SUCRALFATE 1 GM/10 ML UDCUP PO SCH ×2 (08:53→17:07)
[2018-01-27] MEDS: PANTOPRAZOLE 40 MG VIAL IV SCH ×2 (08:53→20:10)
[2018-01-27] MEDS: FUROSEMIDE 20 MG/2 ML VIAL IV SCH (08:57)
[2018-01-27] MEDS: SIMVASTATIN 40 MG TABLET PO SCH (09:01)
[2018-01-27] MEDS: AMIODARONE 200 MG TABLET PO SCH ×2 (09:02→20:10)
[2018-01-27] MEDS: MEGESTROL 40 MG TABLET PO SCH ×2 (09:02→20:10)
[2018-01-27] MEDS: ERTAPENEM 1,000 MG in SODIUM CHLORIDE 0.9% 100 ML IV SCH (09:03)
[2018-01-27] MEDS: ATENOLOL 50 MG TABLET PO SCH ×2 (09:03→21:00)
[2018-01-27] MEDS: ELECTROLYTE IV SCH (17:18)
[2018-01-27] MEDS: MULTIVITAMIN IV SCH (17:18)
[2018-01-27] MEDS: POTASSIUM PHOSPHATE IV SCH (17:18)
[2018-01-27] MEDS: [UNRECOGNIZED DRUG - OTHER] IV SCH (17:18)
[2018-01-27] MEDS: HYDROmorphone 2 MG/1 ML VIAL IV PRN (18:23)
[2018-01-27] MEDS: MIRTAZAPINE 30 MG TABLET PO SCH (20:10)
[2018-01-27] MEDS: SERTRALINE 25 MG TABLET PO SCH (21:00)
[2018-01-27] MEDS: MELATONIN 3 MG TABLET PO SCH (21:00)
[2018-01-28] MEDS: PHENYLEPHRINE DRIP 40 MG/250 ML PREMIX IV PRN ×2 (02:00→12:47)
[2018-01-28] MEDS: LACTATED RINGERS 1,000 ML IV SCH ×2 (05:00→23:23)
[2018-01-28 05:32] LABS: ABG Base Excess -1.8 MMOL/L (-2.5-2.5); ABG HCO3 22.9 MMOL/L (20-26); ABG Oxygen Saturation 99.4 % (95-100); ABG PCO2 33.3 MM HG (35-48); ABG PH 7.421 (7.35-7.45)
[2018-01-28 06:40] LABS: Calcium 7.3 MG/DL (8.5-10.1); Osmolality,Calculated 294.4 MOS/KG (273-304); Potassium 3.9 MMOL/L (3.5-5.1)
[2018-01-28 07:05] LABS: Basophils # 0.1 10*3/uL (0.0-0.2); Basophils % 0.2 % (0.0-0.8)
[2018-01-28] MEDS: AMIODARONE INJ 450 MG in DEXTROSE 5% 241 ML IV SCH ×2 (07:15→11:29)
[2018-01-28] MEDS: INSULIN REGULAR 100 UNIT/ML SUBCUT SCH ×4 (07:15→23:53)
[2018-01-28] MEDS: LEVOTHYROXINE 100 MCG VIAL IV SCH (07:16)
[2018-01-28] MEDS: ENOXAPARIN 40 MG/0.4 ML SYRINGE SUBCUT SCH (07:16)
[2018-01-28 07:20] LABS: Eosinophils # 0.2 10*3/uL (0.0-0.87); Eosinophils % 0.9 % (0.00-10.9); Hematocrit 27.1 VOL% (35.7-47.0); Immature Granulocytes % 5.8 %; Immature Granulocytes Absolute 1.37 #; Lymphocytes # 1.2 10*3/uL (1.4-4.0); Lymphocytes % 5.1 % (21.3-54.2); Mean Corpuscular HGB Conc 31.7 GM/DL (32-36); Mean Corpuscular Hemoglobin 29 PG (27-34); Mean Corpuscular Volume 92.2 FL (87-102); Mean Platelet Volume 11.1 FL (9.6-12.0); Monocytes % 8.5 % (1.7-12.7); Neutrophils # 18.9 10*3/uL (1.4-7.4); Neutrophils % 79.5 % (38.7-73.9); Red Cell Distribution Width 15.8 % (9.3-17.3)
[2018-01-28 07:28] LABS: White Blood Count 23.8 T/CUMM (4-12)
[2018-01-28 07:29] LABS: Hemoglobin 8.6 GM/DL (12.0-16.0); Platelet Count 565 T/CUMM (130-400); Red Blood Count 2.94 MC/CUMM (3.8-5.5)
[2018-01-28 07:38] LABS: Eosinophils 1 % (0-10); Hypochromasia 1+; Lymphocytes 3 % (20-55); Platelet Estimate Adequate; Segmented Neutrophils 90 % (50-85); Total Cells Counted 100
[2018-01-28] MEDS: MEGESTROL 40 MG TABLET PO SCH ×2 (09:07→21:01)
[2018-01-28] MEDS: SIMVASTATIN 40 MG TABLET PO SCH (09:07)
[2018-01-28] MEDS: ATENOLOL 50 MG TABLET PO SCH ×2 (09:07→21:02)
[2018-01-28] MEDS: AMIODARONE 200 MG TABLET PO SCH ×2 (09:07→21:00)
[2018-01-28] MEDS: PROPOFOL 1,000 MG/100 ML BOTTLE IV SCH ×3 (09:07→18:27)
[2018-01-28] MEDS: HYDROmorphone 2 MG/1 ML VIAL IV PRN ×2 (09:08→23:30)
[2018-01-28] MEDS: FUROSEMIDE 20 MG/2 ML VIAL IV SCH (09:08)
[2018-01-28] MEDS: PANTOPRAZOLE 40 MG VIAL IV SCH ×2 (09:08→21:00)
[2018-01-28] MEDS: SUCRALFATE 1 GM/10 ML UDCUP PO SCH ×2 (09:08→15:45)
[2018-01-28] MEDS: ERTAPENEM 1,000 MG in SODIUM CHLORIDE 0.9% 100 ML IV SCH (09:30)
[2018-01-28] MEDS: POTASSIUM CHLORIDE RIDER 20 MEQ in PREMIX 1 EACH IV PRN (09:31)
[2018-01-28] MEDS ORDERED: DESFLURANE 1 UNIT/15 MINUTE INH ONE (17:27)
[2018-01-28] MEDS ORDERED: ETOMIDATE 40 MG/20 ML VIAL IV ONE (17:27)
[2018-01-28] MEDS ORDERED: MIDAZOLAM 2 MG/2 ML VIAL ONE (17:27)
[2018-01-28] MEDS ORDERED: ALBUTEROL INHALER 8 GM INH ONE (17:28)
[2018-01-28] MEDS ORDERED: PHENYLEPHRINE 1 MG/10 ML SYRINGE IV ONE (17:28)
[2018-01-28] MEDS: ELECTROLYTE IV SCH (17:50)
[2018-01-28] MEDS: MULTIVITAMIN IV SCH (17:50)
[2018-01-28] MEDS: POTASSIUM PHOSPHATE IV SCH (17:50)
[2018-01-28] MEDS: [UNRECOGNIZED DRUG - OTHER] IV SCH (17:50)
[2018-01-28] MEDS: MELATONIN 3 MG TABLET PO SCH (21:00)
[2018-01-28] MEDS: SERTRALINE 25 MG TABLET PO SCH (21:01)
[2018-01-28] MEDS: MIRTAZAPINE 30 MG TABLET PO SCH (21:01)
[2018-01-29] MEDS: PROPOFOL 1,000 MG/100 ML BOTTLE IV SCH ×4 (01:49→20:43)
[2018-01-29 04:56] LABS: ABG Base Excess -0.9 MMOL/L (-2.5-2.5); ABG HCO3 23.6 MMOL/L (20-26); ABG Oxygen Saturation 99.4 % (95-100); ABG PCO2 33.9 MM HG (35-48); ABG PH 7.437 (7.35-7.45)
[2018-01-29 05:01] LABS: Basophils # 0.1 10*3/uL (0.0-0.2); Basophils % 0.4 % (0.0-0.8); Eosinophils # 0.3 10*3/uL (0.0-0.87); Eosinophils % 1.4 % (0.00-10.9); Hematocrit 26.8 VOL% (35.7-47.0); Hemoglobin 8.7 GM/DL (12.0-16.0); Immature Granulocytes Absolute 0.77 #; Lymphocytes % 5.1 % (21.3-54.2); Mean Corpuscular HGB Conc 32.5 GM/DL (32-36); Mean Corpuscular Hemoglobin 30 PG (27-34); Mean Corpuscular Volume 91.8 FL (87-102); Mean Platelet Volume 10.2 FL (9.6-12.0); Monocytes # 1.7 10*3/uL (0.11-0.8); Monocytes % 8.9 % (1.7-12.7); Neutrophils # 15.6 10*3/uL (1.4-7.4); Neutrophils % 80.2 % (38.7-73.9); Platelet Count 577 T/CUMM (130-400); Red Blood Count 2.92 MC/CUMM (3.8-5.5); Red Cell Distribution Width 15.8 % (9.3-17.3); White Blood Count 19.4 T/CUMM (4-12)
[2018-01-29] MEDS: INSULIN REGULAR 100 UNIT/ML SUBCUT SCH ×3 (05:12→18:20)
[2018-01-29 05:21] LABS: Calcium 7.2 MG/DL (8.5-10.1); Potassium 4.4 MMOL/L (3.5-5.1)
[2018-01-29 05:27] LABS: Band Neutrophils 2 % (0-10); Hypochromasia Slight; Lymphocytes 8 % (20-55); Metamyelocytes 1 %; Microcytosis 1+; Myelocytes 2 %; Segmented Neutrophils 81 % (50-85); Total Cells Counted 100
[2018-01-29] MEDS: LEVOTHYROXINE 100 MCG VIAL IV SCH (06:43)
[2018-01-29] MEDS: SUCRALFATE 1 GM/10 ML UDCUP PO SCH ×2 (06:43→18:01)
[2018-01-29] MEDS: SIMVASTATIN 40 MG TABLET PO SCH (08:23)
[2018-01-29] MEDS: MEGESTROL 40 MG TABLET PO SCH ×2 (08:23→20:29)
[2018-01-29] MEDS: AMIODARONE 200 MG TABLET PO SCH ×2 (08:23→20:30)
[2018-01-29] MEDS: ENOXAPARIN 40 MG/0.4 ML SYRINGE SUBCUT SCH (08:26)
[2018-01-29] MEDS: PANTOPRAZOLE 40 MG VIAL IV SCH ×2 (08:27→20:40)
[2018-01-29] MEDS: FUROSEMIDE 20 MG/2 ML VIAL IV SCH (08:27)
[2018-01-29] MEDS: ERTAPENEM 1,000 MG in SODIUM CHLORIDE 0.9% 100 ML IV SCH (08:29)
[2018-01-29] MEDS: HYDROmorphone 2 MG/1 ML VIAL IV PRN (10:22)
[2018-01-29] MEDS: ATENOLOL 50 MG TABLET PO SCH ×2 (10:45→20:30)
[2018-01-29] MEDS: MULTIVITAMIN IV SCH (18:01)
[2018-01-29] MEDS: ELECTROLYTE IV SCH (18:01)
[2018-01-29] MEDS: POTASSIUM PHOSPHATE IV SCH (18:01)
[2018-01-29] MEDS: [UNRECOGNIZED DRUG - OTHER] IV SCH (18:01)
[2018-01-29] MEDS: MIRTAZAPINE 30 MG TABLET PO SCH (18:20)
[2018-01-29] MEDS: PHENYLEPHRINE DRIP 40 MG/250 ML PREMIX IV PRN (18:22)
[2018-01-29] MEDS: MELATONIN 3 MG TABLET PO SCH (20:30)
[2018-01-29] MEDS: SERTRALINE 25 MG TABLET PO SCH (20:30)
[2018-01-29] MEDS: LACTATED RINGERS 1,000 ML IV SCH (20:43)
[2018-01-30] MEDS: INSULIN REGULAR 100 UNIT/ML SUBCUT SCH ×5 (01:45→23:37)
[2018-01-30 04:05] LABS: ABG Base Excess -0.1 MMOL/L (-2.5-2.5); ABG HCO3 24.4 MMOL/L (20-26); ABG Oxygen Saturation 99.1 % (95-100); ABG PCO2 30.3 MM HG (35-48); ABG PH 7.478 (7.35-7.45); ABG TCO2 19.6 MMOL/L (23-27)
[2018-01-30] MEDS: PROPOFOL 1,000 MG/100 ML BOTTLE IV SCH ×3 (04:16→18:50)
[2018-01-30 04:43] LABS: Calcium 7.3 MG/DL (8.5-10.1); Potassium 3.9 MMOL/L (3.5-5.1); Prealbumin 12.9 MG/DL (20-40)
[2018-01-30] MEDS: PHENYLEPHRINE DRIP 40 MG/250 ML PREMIX IV PRN ×2 (05:29→22:50)
[2018-01-30] MEDS: LEVOTHYROXINE 100 MCG VIAL IV SCH (07:30)
[2018-01-30 08:02] LABS: Basophils # 0.1 10*3/uL (0.0-0.2); Basophils % 0.3 % (0.0-0.8); Eosinophils # 0.2 10*3/uL (0.0-0.87); Hematocrit 26.2 VOL% (35.7-47.0); Hemoglobin 8.5 GM/DL (12.0-16.0); Immature Granulocytes % 3.9 %; Immature Granulocytes Absolute 0.56 #; Lymphocytes # 0.8 10*3/uL (1.4-4.0); Lymphocytes % 5.3 % (21.3-54.2); Mean Corpuscular HGB Conc 32.4 GM/DL (32-36); Mean Corpuscular Hemoglobin 30 PG (27-34); Mean Corpuscular Volume 91.9 FL (87-102); Monocytes % 6.9 % (1.7-12.7); NRBC # 0.02 10*3/uL; Neutrophils # 11.9 10*3/uL (1.4-7.4); Neutrophils % 82.6 % (38.7-73.9); Platelet Count 554 T/CUMM (130-400); Red Blood Count 2.85 MC/CUMM (3.8-5.5); White Blood Count 14.4 T/CUMM (4-12)
[2018-01-30 08:22] LABS: Band Neutrophils 2 % (0-10); Eosinophils 2 % (0-10); Hypochromasia 1+; Lymphocytes 4 % (20-55); Platelet Estimate Adequate; Segmented Neutrophils 87 % (50-85); Total Cells Counted 100
[2018-01-30 08:23] LABS: Microcytosis Slight
[2018-01-30 08:52] LABS: ABG Base Excess -0.5 MMOL/L (-2.5-2.5); ABG Oxygen Saturation 99.1 % (95-100); ABG PCO2 27.7 MM HG (35-48); ABG PH 7.506 (7.35-7.45); ABG TCO2 20.3 MMOL/L (23-27)
[2018-01-30] MEDS: SUCRALFATE 1 GM/10 ML UDCUP PO SCH ×2 (09:21→17:30)
[2018-01-30] MEDS: ENOXAPARIN 40 MG/0.4 ML SYRINGE SUBCUT SCH (09:21)
[2018-01-30] MEDS: PANTOPRAZOLE 40 MG VIAL IV SCH ×2 (09:21→20:59)
[2018-01-30] MEDS: ATENOLOL 50 MG TABLET PO SCH ×2 (09:22→20:52)
[2018-01-30] MEDS: MEGESTROL 40 MG TABLET PO SCH ×2 (09:22→20:52)
[2018-01-30] MEDS: AMIODARONE 200 MG TABLET PO SCH ×2 (09:22→20:51)
[2018-01-30] MEDS: SIMVASTATIN 40 MG TABLET PO SCH (09:22)
[2018-01-30] MEDS: FUROSEMIDE 20 MG/2 ML VIAL IV SCH (09:22)
[2018-01-30] MEDS: ERTAPENEM 1,000 MG in SODIUM CHLORIDE 0.9% 100 ML IV SCH (09:23)
[2018-01-30] MEDS: HYDROmorphone 2 MG/1 ML VIAL IV PRN (11:43)
[2018-01-30] MEDS: LACTATED RINGERS 1,000 ML IV SCH (15:44)
[2018-01-30] MEDS: MULTIVITAMIN IV SCH (18:50)
[2018-01-30] MEDS: [UNRECOGNIZED DRUG - OTHER] IV SCH (18:50)
[2018-01-30] MEDS: ELECTROLYTE IV SCH (18:50)
[2018-01-30] MEDS: POTASSIUM PHOSPHATE IV SCH (18:50)
[2018-01-30] MEDS: MIRTAZAPINE 30 MG TABLET PO SCH (18:51)
[2018-01-30] MEDS: MELATONIN 3 MG TABLET PO SCH (20:51)
[2018-01-30] MEDS: SERTRALINE 25 MG TABLET PO SCH (20:52)
[2018-01-31] MEDS: HYDROmorphone 2 MG/1 ML VIAL IV PRN (01:37)
[2018-01-31] MEDS: PROPOFOL 1,000 MG/100 ML BOTTLE IV SCH ×2 (02:29→16:00)
[2018-01-31 05:00] LABS: Basophils % 0.3 % (0.0-0.8); Eosinophils # 0.4 10*3/uL (0.0-0.87); Eosinophils % 2.2 % (0.00-10.9); Hematocrit 26.9 VOL% (35.7-47.0); Hemoglobin 8.5 GM/DL (12.0-16.0); Immature Granulocytes % 2.7 %; Immature Granulocytes Absolute 0.42 #; Lymphocytes # 1.2 10*3/uL (1.4-4.0); Lymphocytes % 7.9 % (21.3-54.2); Mean Corpuscular HGB Conc 31.6 GM/DL (32-36); Mean Corpuscular Hemoglobin 30 PG (27-34); Mean Corpuscular Volume 94.7 FL (87-102); Monocytes # 1.2 10*3/uL (0.11-0.8); Monocytes % 7.4 % (1.7-12.7); NRBC # 0.02 10*3/uL; Neutrophils # 12.4 10*3/uL (1.4-7.4); Neutrophils % 79.5 % (38.7-73.9); Platelet Count 483 T/CUMM (130-400); Red Blood Count 2.84 MC/CUMM (3.8-5.5); Red Cell Distribution Width 15.9 % (9.3-17.3); White Blood Count 15.6 T/CUMM (4-12)
[2018-01-31 05:30] LABS: Calcium 7.7 MG/DL (8.5-10.1); Potassium 3.6 MMOL/L (3.5-5.1)
[2018-01-31] MEDS: INSULIN REGULAR 100 UNIT/ML SUBCUT SCH ×3 (06:23→19:07)
[2018-01-31] MEDS: LEVOTHYROXINE 100 MCG VIAL IV SCH (06:27)
[2018-01-31 06:48] LABS: ABG Base Excess -0.6 MMOL/L (-2.5-2.5); ABG HCO3 22.1 MMOL/L (20-26); ABG Oxygen Saturation 98.5 % (95-100); ABG PCO2 28.8 MM HG (35-48); ABG PH 7.502 (7.35-7.45); ABG PO2 145.2 MM HG (80-95); ABG TCO2 22.9 MMOL/L (23-27)
[2018-01-31] MEDS: PANTOPRAZOLE 40 MG VIAL IV SCH ×2 (09:27→22:02)
[2018-01-31] MEDS: FUROSEMIDE 20 MG/2 ML VIAL IV SCH (09:29)
[2018-01-31] MEDS: AMIODARONE 200 MG TABLET PO SCH ×2 (09:31→22:03)
[2018-01-31] MEDS: SUCRALFATE 1 GM/10 ML UDCUP PO SCH ×2 (09:31→17:45)
[2018-01-31] MEDS: MEGESTROL 40 MG TABLET PO SCH ×2 (09:32→22:04)
[2018-01-31] MEDS: ATENOLOL 50 MG TABLET PO SCH ×2 (09:32→22:03)
[2018-01-31] MEDS: SIMVASTATIN 40 MG TABLET PO SCH (09:32)
[2018-01-31] MEDS: ENOXAPARIN 40 MG/0.4 ML SYRINGE SUBCUT SCH (09:32)
[2018-01-31] MEDS: POTASSIUM CHLORIDE RIDER 10 MEQ in PREMIX 1 EACH IV PRN ×2 (09:49→10:53)
[2018-01-31] MEDS: ERTAPENEM 1,000 MG in SODIUM CHLORIDE 0.9% 100 ML IV SCH (09:49)
[2018-01-31] MEDS: LACTATED RINGERS 1,000 ML IV SCH (12:42)
[2018-01-31] MEDS: MULTIVITAMIN IV SCH (17:46)
[2018-01-31] MEDS: ELECTROLYTE IV SCH (17:46)
[2018-01-31] MEDS: [UNRECOGNIZED DRUG - OTHER] IV SCH (17:46)
[2018-01-31] MEDS: POTASSIUM PHOSPHATE IV SCH (17:46)
[2018-01-31] MEDS: SERTRALINE 25 MG TABLET PO SCH (22:03)
[2018-01-31] MEDS: MELATONIN 3 MG TABLET PO SCH (22:04)
[2018-01-31] MEDS: MIRTAZAPINE 30 MG TABLET PO SCH (22:04)
[2018-02-01] MEDS: PHENYLEPHRINE DRIP 40 MG/250 ML PREMIX IV PRN ×2 (00:10→15:12)
[2018-02-01] MEDS: INSULIN REGULAR 100 UNIT/ML SUBCUT SCH ×4 (00:36→18:12)
[2018-02-01 03:16] LABS: ABG Base Excess -0.2 MMOL/L (-2.5-2.5); ABG HCO3 21.8 MMOL/L (20-26); ABG Oxygen Saturation 98.5 % (95-100); ABG PH 7.525 (7.35-7.45); ABG PO2 140.1 MM HG (80-95); ABG TCO2 22.6 MMOL/L (23-27)
[2018-02-01 03:17] LABS: Basophils # 0.1 10*3/uL (0.0-0.2); Basophils % 0.3 % (0.0-0.8); Eosinophils # 0.4 10*3/uL (0.0-0.87); Eosinophils % 2.6 % (0.00-10.9); Hematocrit 28.6 VOL% (35.7-47.0); Immature Granulocytes % 2.2 %; Immature Granulocytes Absolute 0.37 #; Lymphocytes # 1.1 10*3/uL (1.4-4.0); Lymphocytes % 6.8 % (21.3-54.2); Mean Corpuscular HGB Conc 31.5 GM/DL (32-36); Mean Corpuscular Hemoglobin 29 PG (27-34); Mean Corpuscular Volume 93.2 FL (87-102); Mean Platelet Volume 10.2 FL (9.6-12.0); Monocytes # 1.1 10*3/uL (0.11-0.8); Monocytes % 6.8 % (1.7-12.7); Neutrophils # 13.4 10*3/uL (1.4-7.4); Neutrophils % 81.3 % (38.7-73.9); Platelet Count 480 T/CUMM (130-400); Red Blood Count 3.07 MC/CUMM (3.8-5.5); White Blood Count 16.5 T/CUMM (4-12)
[2018-02-01 03:46] LABS: Calcium 7.8 MG/DL (8.5-10.1); Osmolality,Calculated 287.5 MOS/KG (273-304); Potassium 3.9 MMOL/L (3.5-5.1)
[2018-02-01] MEDS: PROPOFOL 1,000 MG/100 ML BOTTLE IV SCH ×3 (06:16→18:07)
[2018-02-01] MEDS: LEVOTHYROXINE 100 MCG VIAL IV SCH (06:16)
[2018-02-01] MEDS: ENOXAPARIN 40 MG/0.4 ML SYRINGE SUBCUT SCH (09:46)
[2018-02-01] MEDS: SUCRALFATE 1 GM/10 ML UDCUP PO SCH ×2 (09:46→16:34)
[2018-02-01] MEDS: LACTATED RINGERS 1,000 ML IV SCH ×2 (09:58→10:59)
[2018-02-01] MEDS: AMIODARONE 200 MG TABLET PO SCH ×2 (09:58→20:44)
[2018-02-01] MEDS: ATENOLOL 50 MG TABLET PO SCH ×2 (09:59→20:44)
[2018-02-01] MEDS: FUROSEMIDE 20 MG/2 ML VIAL IV SCH (09:59)
[2018-02-01] MEDS: MEGESTROL 40 MG TABLET PO SCH ×2 (09:59→20:44)
[2018-02-01] MEDS: SIMVASTATIN 40 MG TABLET PO SCH (09:59)
[2018-02-01] MEDS: PANTOPRAZOLE 40 MG VIAL IV SCH ×2 (09:59→20:44)
[2018-02-01] MEDS: ERTAPENEM 1,000 MG in SODIUM CHLORIDE 0.9% 100 ML IV SCH (10:00)
[2018-02-01] MEDS: POTASSIUM CHLORIDE RIDER 20 MEQ in PREMIX 1 EACH IV PRN (11:05)
[2018-02-01] MEDS: ACETAMINOPHEN 325 MG TABLET PO PRN (16:30)
[2018-02-01] MEDS: [UNRECOGNIZED DRUG - OTHER] IV SCH (17:57)
[2018-02-01] MEDS: MULTIVITAMIN IV SCH (17:57)
[2018-02-01] MEDS: POTASSIUM PHOSPHATE IV SCH (17:57)
[2018-02-01] MEDS: ELECTROLYTE IV SCH (17:57)
[2018-02-01] MEDS: HYDROmorphone 2 MG/1 ML VIAL IV PRN (18:45)
[2018-02-01] MEDS: SERTRALINE 25 MG TABLET PO SCH (20:44)
[2018-02-01] MEDS: MELATONIN 3 MG TABLET PO SCH (20:44)
[2018-02-01] MEDS: MIRTAZAPINE 30 MG TABLET PO SCH (20:44)
[2018-02-02] MEDS: INSULIN REGULAR 100 UNIT/ML SUBCUT SCH ×5 (00:37→23:57)
[2018-02-02] MEDS: HYDROmorphone 2 MG/1 ML VIAL IV PRN ×6 (00:46→23:37)
[2018-02-02] MEDS: LACTATED RINGERS 1,000 ML IV SCH ×3 (05:07→23:57)
[2018-02-02 05:12] LABS: ABG Base Excess -0.8 MMOL/L (-2.5-2.5); ABG HCO3 23.7 MMOL/L (20-26); ABG Oxygen Saturation 99.6 % (95-100); ABG PCO2 31.7 MM HG (35-48); ABG PH 7.459 (7.35-7.45); ABG TCO2 20.8 MMOL/L (23-27)
[2018-02-02 05:52] LABS: Basophils # 0.1 10*3/uL (0.0-0.2); Basophils % 0.3 % (0.0-0.8); Eosinophils # 0.6 10*3/uL (0.0-0.87); Eosinophils % 3.7 % (0.00-10.9); Hemoglobin 8.4 GM/DL (12.0-16.0); Immature Granulocytes % 1.9 %; Lymphocytes # 1.6 10*3/uL (1.4-4.0); Lymphocytes % 9.8 % (21.3-54.2); Mean Corpuscular HGB Conc 31.1 GM/DL (32-36); Mean Corpuscular Hemoglobin 29 PG (27-34); Mean Corpuscular Volume 94.4 FL (87-102); Mean Platelet Volume 10.5 FL (9.6-12.0); Monocytes # 1.2 10*3/uL (0.11-0.8); Monocytes % 7.6 % (1.7-12.7); Neutrophils # 12.3 10*3/uL (1.4-7.4); Neutrophils % 76.7 % (38.7-73.9); Platelet Count 502 T/CUMM (130-400); Red Blood Count 2.86 MC/CUMM (3.8-5.5); Red Cell Distribution Width 15.9 % (9.3-17.3); White Blood Count 16.1 T/CUMM (4-12)
[2018-02-02 05:55] LABS: Calcium 7.9 MG/DL (8.5-10.1); Osmolality,Calculated 291.3 MOS/KG (273-304); Potassium 3.9 MMOL/L (3.5-5.1)
[2018-02-02] MEDS: LEVOTHYROXINE 100 MCG VIAL IV SCH (06:13)
[2018-02-02] MEDS: PHENYLEPHRINE DRIP 40 MG/250 ML PREMIX IV PRN (07:37)
[2018-02-02] MEDS: FUROSEMIDE 20 MG/2 ML VIAL IV SCH (08:39)
[2018-02-02] MEDS: SUCRALFATE 1 GM/10 ML UDCUP PO SCH ×2 (08:39→15:30)
[2018-02-02] MEDS: PANTOPRAZOLE 40 MG VIAL IV SCH ×2 (08:39→21:42)
[2018-02-02] MEDS: SIMVASTATIN 40 MG TABLET PO SCH (08:40)
[2018-02-02] MEDS: POTASSIUM CHLORIDE 20 MEQ TABLET PO PRN (08:40)
[2018-02-02] MEDS: MEGESTROL 40 MG TABLET PO SCH ×2 (08:40→21:42)
[2018-02-02] MEDS: AMIODARONE 200 MG TABLET PO SCH ×2 (08:40→21:42)
[2018-02-02] MEDS: ATENOLOL 50 MG TABLET PO SCH ×2 (08:40→21:42)
[2018-02-02] MEDS: ERTAPENEM 1,000 MG in SODIUM CHLORIDE 0.9% 100 ML IV SCH (08:41)
[2018-02-02] MEDS: ENOXAPARIN 40 MG/0.4 ML SYRINGE SUBCUT SCH (08:59)
[2018-02-02] MEDS: PHENOL 1.4% THROAT SPRAY 177 ML BOTTLE PO PRN (09:15)
[2018-02-02] MEDS: POTASSIUM PHOSPHATE IV SCH (18:00)
[2018-02-02] MEDS: MULTIVITAMIN IV SCH (18:00)
[2018-02-02] MEDS: [UNRECOGNIZED DRUG - OTHER] IV SCH (18:00)
[2018-02-02] MEDS: ELECTROLYTE IV SCH (18:00)
[2018-02-02] MEDS: PROPOFOL 1,000 MG/100 ML BOTTLE IV SCH (18:57)
[2018-02-02] MEDS: SERTRALINE 25 MG TABLET PO SCH (21:42)
[2018-02-02] MEDS: MELATONIN 3 MG TABLET PO SCH (21:42)
[2018-02-02] MEDS: MIRTAZAPINE 30 MG TABLET PO SCH (21:42)
[2018-02-03] MEDS: HYDROmorphone 2 MG/1 ML VIAL IV PRN ×5 (03:15→16:57)
[2018-02-03 04:57] LABS: Basophils % 0.2 % (0.0-0.8); Eosinophils # 0.4 10*3/uL (0.0-0.87); Eosinophils % 2.1 % (0.00-10.9); Hemoglobin 8.6 GM/DL (12.0-16.0); Immature Granulocytes % 1.7 %; Immature Granulocytes Absolute 0.33 #; Lymphocytes # 1.2 10*3/uL (1.4-4.0); Mean Corpuscular HGB Conc 31.9 GM/DL (32-36); Mean Corpuscular Hemoglobin 30 PG (27-34); Mean Corpuscular Volume 94.1 FL (87-102); Mean Platelet Volume 10.3 FL (9.6-12.0); Monocytes # 0.9 10*3/uL (0.11-0.8); Monocytes % 4.6 % (1.7-12.7); Neutrophils # 16.8 10*3/uL (1.4-7.4); Neutrophils % 85.4 % (38.7-73.9); Platelet Count 389 T/CUMM (130-400); Red Blood Count 2.87 MC/CUMM (3.8-5.5); Red Cell Distribution Width 15.8 % (9.3-17.3); White Blood Count 19.6 T/CUMM (4-12)
[2018-02-03 04:59] LABS: ABG Base Excess -1.8 MMOL/L (-2.5-2.5); ABG HCO3 22.9 MMOL/L (20-26); ABG Oxygen Saturation 98.8 % (95-100); ABG PCO2 35.5 MM HG (35-48); ABG PH 7.409 (7.35-7.45); ABG TCO2 20.8 MMOL/L (23-27)
[2018-02-03 05:33] LABS: Calcium 7.4 MG/DL (8.5-10.1); Osmolality,Calculated 295.1 MOS/KG (273-304); Potassium 4.4 MMOL/L (3.5-5.1); Prealbumin 21.1 MG/DL (20-40)
[2018-02-03] MEDS: INSULIN REGULAR 100 UNIT/ML SUBCUT SCH ×4 (05:36→23:34)
[2018-02-03] MEDS: LEVOTHYROXINE 100 MCG VIAL IV SCH (06:03)
[2018-02-03] MEDS: ERTAPENEM 1,000 MG in SODIUM CHLORIDE 0.9% 100 ML IV SCH (08:07)
[2018-02-03 08:14] LABS: Apearance,Urine CLOUDY (Clear); Bacteria,Urine Occasional /HPF (Few); Bilirubin,Urine Negative (Negative); Blood, Urine Small mg/dL (Negative); Glucose,Urine (UA) Negative (Negative); Ketones,Urine Negative (Negative); Mucus,Urine Few /LPF (Occasional); Nitrite,Urine Negative (Negative); Protein,Urine 30 MG/DL; RBC,Urine 8 /HPF (0-4); Urine Color Yellow (Yellow); Urine Specific Gravity 1.013 (1.001-1.035); Urine Urobilinogen < 2.0 EU/DL (0.2-1.0); WBC,Urine 156 /HPF (0-6)
[2018-02-03] MEDS: SIMVASTATIN 40 MG TABLET PO SCH (08:52)
[2018-02-03] MEDS: MEGESTROL 40 MG TABLET PO SCH ×2 (08:52→21:40)
[2018-02-03] MEDS: PHENOL 1.4% THROAT SPRAY 177 ML BOTTLE PO PRN (08:53)
[2018-02-03] MEDS: AMIODARONE 200 MG TABLET PO SCH ×2 (08:53→21:40)
[2018-02-03] MEDS: FUROSEMIDE 20 MG/2 ML VIAL IV SCH (08:58)
[2018-02-03] MEDS: PANTOPRAZOLE 40 MG VIAL IV SCH ×2 (08:59→21:46)
[2018-02-03] MEDS: SUCRALFATE 1 GM/10 ML UDCUP PO SCH (10:02)
[2018-02-03] MEDS: ENOXAPARIN 40 MG/0.4 ML SYRINGE SUBCUT SCH (10:21)
[2018-02-03] MEDS: ELECTROLYTE IV SCH (17:19)
[2018-02-03] MEDS: MULTIVITAMIN IV SCH (17:19)
[2018-02-03] MEDS: POTASSIUM PHOSPHATE IV SCH (17:19)
[2018-02-03] MEDS: [UNRECOGNIZED DRUG - OTHER] IV SCH (17:19)
[2018-02-03] MEDS: ATENOLOL 50 MG TABLET PO SCH ×2 (17:22→22:40)
[2018-02-03] MEDS: MELATONIN 3 MG TABLET PO SCH (21:40)
[2018-02-03] MEDS: SERTRALINE 25 MG TABLET PO SCH (21:41)
[2018-02-03] MEDS: MIRTAZAPINE 30 MG TABLET PO SCH (21:42)
[2018-02-04] MEDS: HYDROmorphone 2 MG/1 ML VIAL IV PRN ×2 (01:44→18:34)
[2018-02-04 05:53] LABS: Calcium 7.8 MG/DL (8.5-10.1); Osmolality,Calculated 295.1 MOS/KG (273-304)
[2018-02-04] MEDS: INSULIN REGULAR 100 UNIT/ML SUBCUT SCH ×3 (05:59→18:11)
[2018-02-04 06:16] LABS: Basophils # 0.1 10*3/uL (0.0-0.2); Basophils % 0.3 % (0.0-0.8); Eosinophils # 0.3 10*3/uL (0.0-0.87); Eosinophils % 1.9 % (0.00-10.9); Hematocrit 24.5 VOL% (35.7-47.0); Hemoglobin 7.7 GM/DL (12.0-16.0); Immature Granulocytes % 1.3 %; Lymphocytes # 1.4 10*3/uL (1.4-4.0); Lymphocytes % 8.8 % (21.3-54.2); Mean Corpuscular HGB Conc 31.4 GM/DL (32-36); Mean Corpuscular Hemoglobin 29 PG (27-34); Mean Corpuscular Volume 93.5 FL (87-102); Mean Platelet Volume 11.7 FL (9.6-12.0); Monocytes # 0.9 10*3/uL (0.11-0.8); Monocytes % 5.7 % (1.7-12.7); Neutrophils # 12.9 10*3/uL (1.4-7.4); Platelet Count 348 T/CUMM (130-400); Red Blood Count 2.62 MC/CUMM (3.8-5.5); Red Cell Distribution Width 15.7 % (9.3-17.3); White Blood Count 15.7 T/CUMM (4-12)
[2018-02-04] MEDS: LEVOTHYROXINE 100 MCG VIAL IV SCH (06:45)
[2018-02-04] MEDS: ERTAPENEM 1,000 MG in SODIUM CHLORIDE 0.9% 100 ML IV SCH (08:14)
[2018-02-04] MEDS: AMIODARONE 200 MG TABLET PO SCH ×2 (08:17→21:12)
[2018-02-04] MEDS: ATENOLOL 50 MG TABLET PO SCH ×2 (08:17→21:10)
[2018-02-04] MEDS: SIMVASTATIN 40 MG TABLET PO SCH (08:17)
[2018-02-04] MEDS: MEGESTROL 40 MG TABLET PO SCH ×2 (08:17→21:12)
[2018-02-04] MEDS: ENOXAPARIN 40 MG/0.4 ML SYRINGE SUBCUT SCH (08:22)
[2018-02-04] MEDS: PANTOPRAZOLE 40 MG VIAL IV SCH ×2 (08:22→21:13)
[2018-02-04] MEDS: FUROSEMIDE 20 MG/2 ML VIAL IV SCH (08:22)
[2018-02-04] MEDS: POTASSIUM PHOSPHATE IV SCH (17:08)
[2018-02-04] MEDS: [UNRECOGNIZED DRUG - OTHER] IV SCH (17:08)
[2018-02-04] MEDS: ELECTROLYTE IV SCH (17:08)
[2018-02-04] MEDS: MULTIVITAMIN IV SCH (17:08)
[2018-02-04] MEDS: MIRTAZAPINE 30 MG TABLET PO SCH (18:34)
[2018-02-04] MEDS: MELATONIN 3 MG TABLET PO SCH (21:12)
[2018-02-04] MEDS: SERTRALINE 25 MG TABLET PO SCH (21:13)
[2018-02-05] MEDS: FLUCONAZOLE INJ 200 MG in PREMIX 1 EACH IV SCH ×2 (00:27→22:00)
[2018-02-05] MEDS: INSULIN REGULAR 100 UNIT/ML SUBCUT SCH ×4 (00:28→18:49)
[2018-02-05] MEDS: ACETAMINOPHEN 325 MG TABLET PO PRN ×2 (03:25→14:50)
[2018-02-05] MEDS: HYDROmorphone 2 MG/1 ML VIAL IV PRN (04:51)
[2018-02-05 06:44] LABS: Basophils % 0.2 % (0.0-0.8); Eosinophils # 0.3 10*3/uL (0.0-0.87); Eosinophils % 1.3 % (0.00-10.9); Hematocrit 26.3 VOL% (35.7-47.0); Hemoglobin 7.9 GM/DL (12.0-16.0); Immature Granulocytes % 1.4 %; Immature Granulocytes Absolute 0.26 #; Lymphocytes # 1.7 10*3/uL (1.4-4.0); Lymphocytes % 8.6 % (21.3-54.2); Mean Corpuscular Hemoglobin 29 PG (27-34); Mean Platelet Volume 12.4 FL (9.6-12.0); Monocytes # 1.1 10*3/uL (0.11-0.8); Monocytes % 5.8 % (1.7-12.7); Neutrophils # 15.9 10*3/uL (1.4-7.4); Neutrophils % 82.7 % (38.7-73.9); Platelet Count 346 T/CUMM (130-400); Red Blood Count 2.74 MC/CUMM (3.8-5.5); Red Cell Distribution Width 16.1 % (9.3-17.3); White Blood Count 19.2 T/CUMM (4-12)
[2018-02-05] MEDS: LEVOTHYROXINE 100 MCG VIAL IV SCH (07:02)
[2018-02-05 07:29] LABS: Calcium 7.8 MG/DL (8.5-10.1); Osmolality,Calculated 297.1 MOS/KG (273-304); Potassium 3.5 MMOL/L (3.5-5.1)
[2018-02-05] MEDS: FUROSEMIDE 20 MG/2 ML VIAL IV SCH (09:32)
[2018-02-05] MEDS: ENOXAPARIN 40 MG/0.4 ML SYRINGE SUBCUT SCH (09:32)
[2018-02-05] MEDS: SIMVASTATIN 40 MG TABLET PO SCH (09:33)
[2018-02-05] MEDS: ATENOLOL 50 MG TABLET PO SCH ×2 (09:33→20:53)
[2018-02-05] MEDS: AMIODARONE 200 MG TABLET PO SCH ×2 (09:33→20:51)
[2018-02-05] MEDS: MEGESTROL 40 MG TABLET PO SCH ×2 (09:33→20:51)
[2018-02-05] MEDS: PANTOPRAZOLE 40 MG VIAL IV SCH ×2 (09:34→21:55)
[2018-02-05] MEDS: MIRTAZAPINE 30 MG TABLET PO SCH (19:02)
[2018-02-05] MEDS: SERTRALINE 25 MG TABLET PO SCH (20:51)
[2018-02-05] MEDS: MELATONIN 3 MG TABLET PO SCH (20:51)
[2018-02-05] MEDS: POTASSIUM CHLORIDE 20 MEQ TABLET PO PRN (20:53)
[2018-02-05] MEDS: MAGNESIUM SULF RIDER 2 GM in PREMIX 1 EACH IV PRN (23:03)
[2018-02-06] MEDS: HYDROmorphone 2 MG/1 ML VIAL IV PRN ×5 (02:34→22:32)
[2018-02-06] MEDS: POTASSIUM CHLORIDE 20 MEQ TABLET PO PRN (04:06)
[2018-02-06] MEDS: LEVOTHYROXINE 100 MCG VIAL IV SCH (06:18)
[2018-02-06] MEDS: INSULIN REGULAR 100 UNIT/ML SUBCUT SCH ×4 (06:26→21:12)
[2018-02-06 07:01] LABS: Basophils # 0.1 10*3/uL (0.0-0.2); Basophils % 0.4 % (0.0-0.8); Eosinophils # 0.3 10*3/uL (0.0-0.87); Eosinophils % 1.9 % (0.00-10.9); Hematocrit 26.1 VOL% (35.7-47.0); Hemoglobin 8.2 GM/DL (12.0-16.0); Immature Granulocytes % 1.5 %; Immature Granulocytes Absolute 0.23 #; Lymphocytes # 1.8 10*3/uL (1.4-4.0); Lymphocytes % 11.5 % (21.3-54.2); Mean Corpuscular HGB Conc 31.4 GM/DL (32-36); Mean Corpuscular Hemoglobin 30 PG (27-34); Mean Corpuscular Volume 93.9 FL (87-102); Mean Platelet Volume 12.1 FL (9.6-12.0); Monocytes # 1.1 10*3/uL (0.11-0.8); Neutrophils # 12.2 10*3/uL (1.4-7.4); Neutrophils % 77.7 % (38.7-73.9); Platelet Count 364 T/CUMM (130-400); Red Blood Count 2.78 MC/CUMM (3.8-5.5); Red Cell Distribution Width 16.4 % (9.3-17.3); White Blood Count 15.6 T/CUMM (4-12)
[2018-02-06 07:30] LABS: Calcium 7.8 MG/DL (8.5-10.1)
[2018-02-06 07:33] LABS: Prealbumin 22.1 MG/DL (20-40)
[2018-02-06] MEDS: SIMVASTATIN 40 MG TABLET PO SCH (09:33)
[2018-02-06] MEDS: MEGESTROL 40 MG TABLET PO SCH ×2 (09:33→22:18)
[2018-02-06] MEDS: AMIODARONE 200 MG TABLET PO SCH ×2 (09:33→22:18)
[2018-02-06] MEDS: ATENOLOL 50 MG TABLET PO SCH ×2 (09:33→22:19)
[2018-02-06] MEDS: ENOXAPARIN 40 MG/0.4 ML SYRINGE SUBCUT SCH (09:34)
[2018-02-06] MEDS: PANTOPRAZOLE 40 MG VIAL IV SCH ×2 (09:34→22:15)
[2018-02-06] MEDS: FUROSEMIDE 20 MG/2 ML VIAL IV SCH (09:38)
[2018-02-06] MEDS: NYSTATIN 500,000 UNIT/5 ML UDCUP SWISH/SWAL SCH ×2 (19:52→22:18)
[2018-02-06] MEDS: ERTAPENEM 1,000 MG in SODIUM CHLORIDE 0.9% 100 ML IV SCH (22:12)
[2018-02-06] MEDS: MELATONIN 3 MG TABLET PO SCH (22:18)
[2018-02-06] MEDS: MIRTAZAPINE 30 MG TABLET PO SCH (22:19)
[2018-02-06] MEDS: SERTRALINE 25 MG TABLET PO SCH (22:20)
[2018-02-06] MEDS: FLUCONAZOLE INJ 200 MG in PREMIX 1 EACH IV SCH (22:51)
[2018-02-06] MEDS: VANCOMYCIN INJ 1,000 MG in SODIUM CHLORIDE 0.9% 250 ML IV SCH (23:36)
[2018-02-07] MEDS: INSULIN REGULAR 100 UNIT/ML SUBCUT SCH ×4 (00:24→18:14)
[2018-02-07] MEDS: HYDROmorphone 2 MG/1 ML VIAL IV PRN ×4 (03:19→19:49)
[2018-02-07 06:07] LABS: Basophils # 0.1 10*3/uL (0.0-0.2); Basophils % 0.4 % (0.0-0.8); Eosinophils # 0.3 10*3/uL (0.0-0.87); Eosinophils % 1.6 % (0.00-10.9); Hematocrit 27.9 VOL% (35.7-47.0); Immature Granulocytes % 1.4 %; Immature Granulocytes Absolute 0.23 #; Lymphocytes # 1.1 10*3/uL (1.4-4.0); Lymphocytes % 6.7 % (21.3-54.2); Mean Corpuscular HGB Conc 32.3 GM/DL (32-36); Mean Corpuscular Hemoglobin 30 PG (27-34); Mean Platelet Volume 12.1 FL (9.6-12.0); Monocytes # 1.1 10*3/uL (0.11-0.8); Monocytes % 6.5 % (1.7-12.7); Neutrophils # 13.7 10*3/uL (1.4-7.4); Neutrophils % 83.4 % (38.7-73.9); Platelet Count 418 T/CUMM (130-400); Red Cell Distribution Width 16.7 % (9.3-17.3); White Blood Count 16.4 T/CUMM (4-12)
[2018-02-07 06:38] LABS: Calcium 7.9 MG/DL (8.5-10.1); Osmolality,Calculated 289.4 MOS/KG (273-304); Potassium 4.7 MMOL/L (3.5-5.1)
[2018-02-07] MEDS: LEVOTHYROXINE 100 MCG VIAL IV SCH (09:08)
[2018-02-07] MEDS: metroNIDAZOLE INJ 500 MG in PREMIX 1 EACH IV SCH ×3 (09:11→23:03)
[2018-02-07] MEDS ORDERED: HYDROmorphone 2 MG/1 ML VIAL ONE (12:54)
[2018-02-07] MEDS: NYSTATIN 500,000 UNIT/5 ML UDCUP SWISH/SWAL SCH ×4 (13:57→21:11)
[2018-02-07] MEDS: FUROSEMIDE 20 MG/2 ML VIAL IV SCH (13:58)
[2018-02-07] MEDS: SIMVASTATIN 40 MG TABLET PO SCH (13:59)
[2018-02-07] MEDS: MEGESTROL 40 MG TABLET PO SCH ×2 (13:59→20:58)
[2018-02-07] MEDS: ATENOLOL 50 MG TABLET PO SCH ×2 (13:59→20:59)
[2018-02-07] MEDS: ENOXAPARIN 40 MG/0.4 ML SYRINGE SUBCUT SCH (14:00)
[2018-02-07] MEDS: PANTOPRAZOLE 40 MG VIAL IV SCH ×2 (14:01→20:59)
[2018-02-07] MEDS: VANCOMYCIN INJ 1,000 MG in SODIUM CHLORIDE 0.9% 250 ML IV SCH ×2 (14:03→23:03)
[2018-02-07] MEDS: AMIODARONE 200 MG TABLET PO SCH (14:52)
[2018-02-07] MEDS: MIRTAZAPINE 30 MG TABLET PO SCH (18:15)
[2018-02-07] MEDS: SERTRALINE 25 MG TABLET PO SCH (20:58)
[2018-02-07] MEDS: ERTAPENEM 1,000 MG in SODIUM CHLORIDE 0.9% 100 ML IV SCH (20:59)
[2018-02-07] MEDS: MELATONIN 3 MG TABLET PO SCH (20:59)
[2018-02-07] MEDS: FLUCONAZOLE INJ 200 MG in PREMIX 1 EACH IV SCH (21:33)
[2018-02-08] MEDS: INSULIN REGULAR 100 UNIT/ML SUBCUT SCH ×4 (00:09→18:27)
[2018-02-08] MEDS: HYDROmorphone 2 MG/1 ML VIAL IV PRN ×6 (04:00→20:44)
[2018-02-08] MEDS: LEVOTHYROXINE 100 MCG VIAL IV SCH (05:59)
[2018-02-08] MEDS: AMIODARONE 200 MG TABLET PO SCH (09:22)
[2018-02-08] MEDS: SIMVASTATIN 40 MG TABLET PO SCH (09:22)
[2018-02-08] MEDS: MEGESTROL 40 MG TABLET PO SCH ×2 (09:22→20:38)
[2018-02-08] MEDS: ATENOLOL 50 MG TABLET PO SCH ×2 (09:22→20:38)
[2018-02-08] MEDS: NYSTATIN 500,000 UNIT/5 ML UDCUP SWISH/SWAL SCH ×4 (09:22→21:07)
[2018-02-08] MEDS: FUROSEMIDE 20 MG/2 ML VIAL IV SCH (09:27)
[2018-02-08] MEDS: PANTOPRAZOLE 40 MG VIAL IV SCH ×2 (09:29→20:45)
[2018-02-08] MEDS: ENOXAPARIN 40 MG/0.4 ML SYRINGE SUBCUT SCH (09:29)
[2018-02-08] MEDS: metroNIDAZOLE INJ 500 MG in PREMIX 1 EACH IV SCH ×2 (09:30→15:09)
[2018-02-08] MEDS: VANCOMYCIN INJ 1,000 MG in SODIUM CHLORIDE 0.9% 250 ML IV SCH (12:32)
[2018-02-08 12:36] LABS: Basophils # 0.1 10*3/uL (0.0-0.2); Basophils % 0.4 % (0.0-0.8); Eosinophils # 0.2 10*3/uL (0.0-0.87); Eosinophils % 1.7 % (0.00-10.9); Hemoglobin 8.8 GM/DL (12.0-16.0); Immature Granulocytes % 1.3 %; Immature Granulocytes Absolute 0.15 #; Lymphocytes # 1.6 10*3/uL (1.4-4.0); Lymphocytes % 13.4 % (21.3-54.2); Mean Corpuscular HGB Conc 32.6 GM/DL (32-36); Mean Corpuscular Hemoglobin 30 PG (27-34); Mean Corpuscular Volume 92.2 FL (87-102); Mean Platelet Volume 11.6 FL (9.6-12.0); Monocytes # 1.2 10*3/uL (0.11-0.8); Monocytes % 10.3 % (1.7-12.7); Neutrophils # 8.5 10*3/uL (1.4-7.4); Neutrophils % 72.9 % (38.7-73.9); Platelet Count 364 T/CUMM (130-400); Red Blood Count 2.93 MC/CUMM (3.8-5.5); Red Cell Distribution Width 16.9 % (9.3-17.3); White Blood Count 11.7 T/CUMM (4-12)
[2018-02-08] MEDS: MIRTAZAPINE 30 MG TABLET PO SCH (18:38)
[2018-02-08] MEDS: MELATONIN 3 MG TABLET PO SCH (20:38)
[2018-02-08] MEDS: SERTRALINE 25 MG TABLET PO SCH (20:38)
[2018-02-08] MEDS: ERTAPENEM 1,000 MG in SODIUM CHLORIDE 0.9% 100 ML IV SCH (20:48)
[2018-02-08] MEDS: FLUCONAZOLE INJ 200 MG in PREMIX 1 EACH IV SCH (22:52)
[2018-02-09] MEDS: metroNIDAZOLE INJ 500 MG in PREMIX 1 EACH IV SCH ×3 (00:04→16:46)
[2018-02-09] MEDS: VANCOMYCIN INJ 1,000 MG in SODIUM CHLORIDE 0.9% 250 ML IV SCH ×2 (00:05→17:49)
[2018-02-09] MEDS: INSULIN REGULAR 100 UNIT/ML SUBCUT SCH ×4 (00:27→17:14)
[2018-02-09] MEDS: HYDROmorphone 2 MG/1 ML VIAL IV PRN ×5 (00:58→22:23)
[2018-02-09] MEDS: LEVOTHYROXINE 100 MCG VIAL IV SCH (06:25)
[2018-02-09] MEDS: SIMVASTATIN 40 MG TABLET PO SCH (09:47)
[2018-02-09] MEDS: AMIODARONE 200 MG TABLET PO SCH (09:47)
[2018-02-09] MEDS: ATENOLOL 50 MG TABLET PO SCH ×2 (09:47→22:51)
[2018-02-09] MEDS: MEGESTROL 40 MG TABLET PO SCH ×2 (09:47→22:52)
[2018-02-09] MEDS: FUROSEMIDE 20 MG/2 ML VIAL IV SCH (09:48)
[2018-02-09] MEDS: ENOXAPARIN 40 MG/0.4 ML SYRINGE SUBCUT SCH (09:48)
[2018-02-09] MEDS: PANTOPRAZOLE 40 MG VIAL IV SCH ×2 (09:48→22:52)
[2018-02-09] MEDS: NYSTATIN 500,000 UNIT/5 ML UDCUP SWISH/SWAL SCH ×4 (09:48→22:51)
[2018-02-09] MEDS: MIRTAZAPINE 30 MG TABLET PO SCH (18:28)
[2018-02-09] MEDS: SERTRALINE 25 MG TABLET PO SCH ×2 (22:20→22:51)
[2018-02-09] MEDS: MELATONIN 3 MG TABLET PO SCH (22:52)
[2018-02-09] MEDS: ERTAPENEM 1,000 MG in SODIUM CHLORIDE 0.9% 100 ML IV SCH (22:53)
[2018-02-09] MEDS: FLUCONAZOLE INJ 200 MG in PREMIX 1 EACH IV SCH (22:54)
[2018-02-10] MEDS: metroNIDAZOLE INJ 500 MG in PREMIX 1 EACH IV SCH ×2 (00:06→10:15)
[2018-02-10] MEDS: INSULIN REGULAR 100 UNIT/ML SUBCUT SCH ×3 (01:33→13:22)
[2018-02-10] MEDS: HYDROmorphone 2 MG/1 ML VIAL IV PRN ×4 (03:02→12:37)
[2018-02-10 07:01] LABS: Prealbumin 20.6 MG/DL (20-40)
[2018-02-10] MEDS: LEVOTHYROXINE 100 MCG VIAL IV SCH (07:10)
[2018-02-10] MEDS: PANTOPRAZOLE 40 MG VIAL IV SCH (08:36)
[2018-02-10] MEDS: SIMVASTATIN 40 MG TABLET PO SCH (08:44)
[2018-02-10] MEDS: AMIODARONE 200 MG TABLET PO SCH (08:45)
[2018-02-10] MEDS: ATENOLOL 50 MG TABLET PO SCH (08:48)
[2018-02-10] MEDS: NYSTATIN 500,000 UNIT/5 ML UDCUP SWISH/SWAL SCH ×2 (08:51→12:34)
[2018-02-10] MEDS: FUROSEMIDE 20 MG/2 ML VIAL IV SCH (08:52)
[2018-02-10 11:09] LABS: Basophils # 0.1 10*3/uL (0.0-0.2); Basophils % 0.3 % (0.0-0.8); Eosinophils # 0.2 10*3/uL (0.0-0.87); Eosinophils % 1.3 % (0.00-10.9); Hematocrit 30.8 VOL% (35.7-47.0); Hemoglobin 9.3 GM/DL (12.0-16.0); Immature Granulocytes % 1.1 %; Immature Granulocytes Absolute 0.18 #; Lymphocytes # 2.3 10*3/uL (1.4-4.0); Lymphocytes % 14.1 % (21.3-54.2); Mean Corpuscular HGB Conc 30.2 GM/DL (32-36); Mean Corpuscular Hemoglobin 29 PG (27-34); Mean Corpuscular Volume 96.6 FL (87-102); Mean Platelet Volume 11.8 FL (9.6-12.0); Monocytes # 1.3 10*3/uL (0.11-0.8); Monocytes % 7.6 % (1.7-12.7); Neutrophils # 12.6 10*3/uL (1.4-7.4); Neutrophils % 75.6 % (38.7-73.9); Platelet Count 354 T/CUMM (130-400); Red Blood Count 3.19 MC/CUMM (3.8-5.5); White Blood Count 16.7 T/CUMM (4-12)
[2018-02-10 11:45] LABS: Calcium 7.8 MG/DL (8.5-10.1); Osmolality,Calculated 286.4 MOS/KG (273-304); Potassium 4.1 MMOL/L (3.5-5.1)
[2018-02-10 12:03] VITALS: BP 113/53
[2018-02-10] MEDS: ENOXAPARIN 40 MG/0.4 ML SYRINGE SUBCUT SCH (12:34)
[2018-02-10] MEDS: MEGESTROL 40 MG TABLET PO SCH (12:34)
[2018-02-10] MEDS: VANCOMYCIN INJ 1,000 MG in SODIUM CHLORIDE 0.9% 250 ML IV SCH (13:22)
== END 2018-02-10 15:15 | DRG 856 ==
LOC: N.ED 05:52 → N.EDINP 08:09 → N.ICU 12:02 → N.3E 01-17 11:20 → N.ICU 01-19 09:59 → N.5E 02-04 18:10
PROVIDERS: ADMIT Surgery; ATTEND Surgery

== ENCOUNTER 2019-01-02 14:25 | Inpatient (IN) ==
[2019-01-02] MEDS ORDERED: SODIUM CHLORIDE 0.9% 1,000 ML IV STA (14:48)
[2019-01-02] MEDS ORDERED: ONDANSETRON 4 MG/2 ML VIAL IV STA (14:48)
[2019-01-02] MEDS ORDERED: HYDROmorphone 2 MG/1 ML VIAL IV STA ×2 (14:48→17:39)
[2019-01-02 15:50] LABS: Basophils # 0.1 10*3/uL (0.0-0.2); Basophils % 0.3 % (0.0-0.8); Eosinophils # 0.1 10*3/uL (0.0-0.87); Eosinophils % 0.6 % (0.00-10.9); Hematocrit 43.4 VOL% (35.7-47.0); Hemoglobin 13.8 GM/DL (12.0-16.0); Immature Granulocytes % 0.6 %; Lymphocytes # 1.5 10*3/uL (1.4-4.0); Lymphocytes % 9.3 % (21.3-54.2); Mean Corpuscular HGB Conc 31.8 GM/DL (32-36); Mean Corpuscular Volume 96.2 FL (87-102); Monocytes % 7.7 % (1.7-12.7); Neutrophils % 81.5 % (38.7-73.9); Platelet Count 300 T/CUMM (130-400); Red Blood Count 4.51 MC/CUMM (3.8-5.5); Red Cell Distribution Width 13.1 % (9.3-17.3); White Blood Count 16.2 T/CUMM (4-12)
[2019-01-02 16:03] LABS: Albumin 3.6 G/DL (3.4-5.0); Bilirubin,Total 0.7 MG/DL (0.2-1.0); Calcium 8.8 MG/DL (8.5-10.1); Osmolality,Calculated 288.1 MOS/KG (273-304); Total Protein 7.6 G/DL (6.4-8.3)
[2019-01-02 16:19] LABS: Apearance,Urine CLEAR (Clear); Bilirubin,Urine Negative (Negative); Blood, Urine Small mg/dL (Negative); Glucose,Urine (UA) Negative (Negative); Hyaline Casts,Urine 3 /LPF (0-3); Ketones,Urine Negative (Negative); Mucus,Urine Occasional /LPF (Occasional); Nitrite,Urine Negative (Negative); Protein,Urine Negative; RBC,Urine 1 /HPF (0-4); Urine Color Straw (Yellow); Urine Specific Gravity 1.006 (1.001-1.035); Urine Urobilinogen < 2.0 EU/DL (0.2-1.0)
[2019-01-02] MEDS ORDERED: LEVOFLOXACIN INJ 500 MG in PREMIX 1 EACH IV STA (17:03)
[2019-01-02] MEDS ORDERED: metroNIDAZOLE INJ 500 MG in PREMIX 1 EACH IV STA (17:04)
[2019-01-02] MEDS ORDERED: MAGNESIUM SULF RIDER 2 GM in PREMIX 1 EACH IV PRN (17:39)
[2019-01-02] MEDS ORDERED: ONDANSETRON 4 MG/2 ML VIAL IV PRN (17:39)
[2019-01-02] MEDS ORDERED: MAGNESIUM SULF RIDER 4 GM in PREMIX 1 EACH IV PRN (17:39)
[2019-01-02] MEDS ORDERED: LEVOFLOXACIN INJ 750 MG in PREMIX 1 EACH IV SCH (18:00)
[2019-01-02] MEDS: SODIUM CHLORIDE 0.9% 1,000 ML IV SCH (19:30)
[2019-01-02] MEDS: traZODone 50 MG TABLET PO SCH (21:01)
[2019-01-02] MEDS: MEGESTROL 40 MG TABLET PO SCH (21:02)
[2019-01-02] MEDS: MIRTAZAPINE 15 MG TABLET PO SCH (21:02)
[2019-01-02] MEDS: ATORVASTATIN 20 MG TABLET PO SCH (21:03)
[2019-01-02] MEDS: MELATONIN 3 MG TABLET PO SCH (21:03)
[2019-01-02] MEDS: METOPROLOL TARTRATE 50 MG TABLET PO SCH (21:03)
[2019-01-02] MEDS: FUROSEMIDE 20 MG TABLET PO SCH (22:29)
[2019-01-02] MEDS: HEPARIN 5,000 UNIT/1 ML VIAL SUBCUT SCH (22:56)
[2019-01-03 05:45] LABS: Albumin 2.5 G/DL (3.4-5.0); Bilirubin,Total 1.6 MG/DL (0.2-1.0); Calcium 8.4 MG/DL (8.5-10.1); Total Protein 5.9 G/DL (6.4-8.3)
[2019-01-03 05:55] LABS: Risk Ratio 2.28; Thyroid Stimulating Hormone 3.22 uIU/ml (0.358-3.74); VLDL CHOLESTEROL 18.4 MG/DL
[2019-01-03] MEDS: HEPARIN 5,000 UNIT/1 ML VIAL SUBCUT SCH ×2 (06:25→16:23)
[2019-01-03] MEDS: LEVOTHYROXINE 100 MCG TABLET PO SCH (06:31)
[2019-01-03] MEDS: AMIODARONE 200 MG TABLET PO SCH (09:12)
[2019-01-03] MEDS: FUROSEMIDE 20 MG TABLET PO SCH (09:13)
[2019-01-03] MEDS: ASPIRIN EC 81 MG TABLET PO SCH (09:13)
[2019-01-03] MEDS: POTASSIUM CHLORIDE 20 MEQ TABLET PO SCH (09:13)
[2019-01-03] MEDS: PANTOPRAZOLE 40 MG TABLET PO SCH (09:13)
[2019-01-03] MEDS: METOPROLOL TARTRATE 50 MG TABLET PO SCH ×2 (09:13→20:38)
[2019-01-03] MEDS: MAGNESIUM CHLORIDE 64 MG TABLET PO SCH (09:14)
[2019-01-03] MEDS: SERTRALINE 25 MG TABLET PO SCH (09:14)
[2019-01-03] MEDS: MEGESTROL 40 MG TABLET PO SCH ×2 (09:14→20:32)
[2019-01-03] MEDS: metroNIDAZOLE INJ 500 MG in PREMIX 1 EACH IV SCH ×2 (12:28→14:38)
[2019-01-03] MEDS: SODIUM CHLORIDE 0.9% 1,000 ML IV SCH ×2 (12:35→23:39)
[2019-01-03] MEDS ORDERED: HYDROmorphone 2 MG/1 ML VIAL IV PRN (13:03)
[2019-01-03 13:19] LABS: Basophils % 0.4 % (0.0-0.8); Eosinophils # 0.2 10*3/uL (0.0-0.87); Eosinophils % 1.4 % (0.00-10.9); Hematocrit 37.4 VOL% (35.7-47.0); Immature Granulocytes % 0.5 %; Immature Granulocytes Absolute 0.06 #; Lymphocytes # 2.2 10*3/uL (1.4-4.0); Lymphocytes % 19.7 % (21.3-54.2); Mean Corpuscular HGB Conc 31.6 GM/DL (32-36); Mean Corpuscular Volume 97.1 FL (87-102); Monocytes % 8.6 % (1.7-12.7); Neutrophils % 69.4 % (38.7-73.9); Platelet Count 267 T/CUMM (130-400); Red Blood Count 3.85 MC/CUMM (3.8-5.5); Red Cell Distribution Width 13.1 % (9.3-17.3); White Blood Count 11.1 T/CUMM (4-12)
[2019-01-03 13:23] LABS: Hemoglobin 11.8 GM/DL (12.0-16.0)
[2019-01-03] MEDS: cefTRIAXone 2,000 MG in SYRINGE 1 EACH IV SCH (16:22)
[2019-01-03] MEDS: MELATONIN 3 MG TABLET PO SCH (20:32)
[2019-01-03] MEDS: traZODone 50 MG TABLET PO SCH (20:32)
[2019-01-03] MEDS: MIRTAZAPINE 15 MG TABLET PO SCH (20:32)
[2019-01-03] MEDS: ATORVASTATIN 20 MG TABLET PO SCH (20:33)
[2019-01-04] MEDS: HEPARIN 5,000 UNIT/1 ML VIAL SUBCUT SCH ×2 (00:16→06:00)
[2019-01-04 05:14] LABS: Basophils % 0.5 % (0.0-0.8); Eosinophils # 0.2 10*3/uL (0.0-0.87); Eosinophils % 2.3 % (0.00-10.9); Hematocrit 35.7 VOL% (35.7-47.0); Immature Granulocytes % 0.4 %; Immature Granulocytes Absolute 0.03 #; Lymphocytes # 1.9 10*3/uL (1.4-4.0); Lymphocytes % 23.9 % (21.3-54.2); Mean Corpuscular HGB Conc 30.8 GM/DL (32-36); Mean Corpuscular Volume 99.2 FL (87-102); Monocytes % 10.2 % (1.7-12.7); Neutrophils % 62.7 % (38.7-73.9); Platelet Count 222 T/CUMM (130-400); Red Cell Distribution Width 13.1 % (9.3-17.3); White Blood Count 7.9 T/CUMM (4-12)
[2019-01-04 05:34] LABS: Albumin 2.3 G/DL (3.4-5.0); Bilirubin,Total 0.4 MG/DL (0.2-1.0); Calcium 8.5 MG/DL (8.5-10.1); Osmolality,Calculated 290.7 MOS/KG (273-304); Total Protein 5.8 G/DL (6.4-8.3)
[2019-01-04] MEDS: LEVOTHYROXINE 100 MCG TABLET PO SCH (06:00)
[2019-01-04] MEDS: AMIODARONE 200 MG TABLET PO SCH (08:42)
[2019-01-04] MEDS: POTASSIUM CHLORIDE 20 MEQ TABLET PO SCH (08:42)
[2019-01-04] MEDS: METOPROLOL TARTRATE 50 MG TABLET PO SCH (08:42)
[2019-01-04] MEDS: MAGNESIUM CHLORIDE 64 MG TABLET PO SCH (08:42)
[2019-01-04] MEDS: MEGESTROL 40 MG TABLET PO SCH (08:42)
[2019-01-04] MEDS: ASPIRIN EC 81 MG TABLET PO SCH (08:42)
[2019-01-04] MEDS: PANTOPRAZOLE 40 MG TABLET PO SCH (08:43)
[2019-01-04] MEDS: cefTRIAXone 2,000 MG in SYRINGE 1 EACH IV SCH (08:43)
[2019-01-04] MEDS: SERTRALINE 25 MG TABLET PO SCH (08:44)
[2019-01-04] MEDS ORDERED: LEVOFLOXACIN INJ 750 MG in PREMIX 1 EACH IV SCH (09:00)
[2019-01-04] MEDS ORDERED: ERGOCALCIFEROL 50,000 UNIT CAPSULE PO SCH (09:00)
[2019-01-04 11:33] VITALS: BP 120/69
[2019-01-04] MEDS ORDERED: CEFDINIR 300 MG CAPSULE PO SCH (21:00)
== END 2019-01-04 13:15 | disposition home or self-care (01) | DRG 871 ==
LOC: N.ED 14:25 → N.EDINP 17:54 → SUATTDRO 17:54 → N.2E 18:18
PROVIDERS: ADMIT Family Medicine; ATTEND Internal Medicine Cardiovascular Disease

== ENCOUNTER 2019-06-22 10:26 | Inpatient (IN) ==
[2019-06-22 11:21] LABS: Basophils # 0.1 10*3/uL (0.0-0.2); Basophils % 0.5 % (0.0-0.8); Eosinophils # 0.1 10*3/uL (0.0-0.87); Eosinophils % 0.5 % (0.00-10.9); Hematocrit 29.8 VOL% (35.7-47.0); Hemoglobin 9.7 GM/DL (12.0-16.0); Immature Granulocytes % 0.8 %; Immature Granulocytes Absolute 0.12 #; Lymphocytes % 13.4 % (21.3-54.2); Mean Corpuscular HGB Conc 32.6 GM/DL (32-36); Mean Corpuscular Volume 94.3 FL (87-102); Mean Platelet Volume 11.5 FL (9.6-12.0); Monocytes % 7.7 % (1.7-12.7); Neutrophils % 77.1 % (38.7-73.9); Platelet Count 260 T/CUMM (130-400); Red Blood Count 3.16 MC/CUMM (3.8-5.5); Red Cell Distribution Width 13.3 % (9.3-17.3); White Blood Count 14.9 T/CUMM (4-12)
[2019-06-22 11:43] LABS: Alanine Aminotransferase 11 U/L (13-56); Albumin 3.1 G/DL (3.4-5.0); Alkaline Phosphatase 86 U/L (45-117); Aspartate Amino Transferase 13 U/L (0-37); Bilirubin,Total < 0.39 MG/DL (0.2-1.0); Blood Urea Nitrogen 53 MG/DL (7-18); Calcium 8.3 MG/DL (8.5-10.1); Estimated Glom Filtration Rate 25 ML/MIN; Glucose 101 MG/DL (74-106); Osmolality,Calculated 288.7 MOS/KG (273-304); Total Protein 6.7 G/DL (6.4-8.3)
[2019-06-22] MEDS ORDERED: SODIUM CHLORIDE 0.9% 1,000 ML IV STA (12:52)
[2019-06-22] MEDS ORDERED: PANTOPRAZOLE 40 MG VIAL IV STA (12:52)
[2019-06-22] MEDS ORDERED: ONDANSETRON 4 MG/2 ML VIAL IV STA (13:03)
[2019-06-22] MEDS ORDERED: ONDANSETRON 4 MG/2 ML VIAL ONE (13:04)
[2019-06-22 13:10] LABS: INR 0.9; PT Patient Result 10.1 SECS (9.6-12.2); Partial Thromboplastin Time 24.4 SECS (20.8-36.0)
[2019-06-22] MEDS ORDERED: ACETAMINOPHEN 325 MG TABLET PO PRN (13:46)
[2019-06-22] MEDS ORDERED: PROMETHAZINE 25 MG/1 ML VIAL IM PRN (13:46)
[2019-06-22] MEDS ORDERED: SODIUM CHLORIDE 0.9% 1,000 ML IV SCH (14:00)
[2019-06-22 14:34] LABS: Hematocrit 27.8 VOL% (35.7-47.0); Hemoglobin 8.9 GM/DL (12.0-16.0)
[2019-06-22] MEDS ORDERED: SODIUM CHLORIDE 0.9% 1,000 ML IV PRN (14:48)
[2019-06-22 14:56] LABS: Albumin 2.9 G/DL (3.4-5.0); Bilirubin,Total 1.2 MG/DL (0.2-1.0); Osmolality,Calculated 296.1 MOS/KG (273-304); Total Protein 5.7 G/DL (6.4-8.3)
[2019-06-22] MEDS: ONDANSETRON 4 MG/2 ML VIAL IV PRN (19:42)
[2019-06-22 19:50] LABS: Hematocrit 21.7 VOL% (35.7-47.0)
[2019-06-22] MEDS: ATORVASTATIN 20 MG TABLET PO SCH (21:05)
[2019-06-22] MEDS: traZODone 50 MG TABLET PO SCH (21:05)
[2019-06-22] MEDS: METOPROLOL TARTRATE 50 MG TABLET PO SCH (21:06)
[2019-06-22] MEDS: MELATONIN 3 MG TABLET PO SCH (21:06)
[2019-06-22] MEDS: PANTOPRAZOLE 40 MG VIAL IV SCH (21:06)
[2019-06-22] MEDS: MIRTAZAPINE 30 MG TABLET PO SCH (21:07)
[2019-06-23 06:30] LABS: Hematocrit 28.6 VOL% (35.7-47.0); Hemoglobin 9.5 GM/DL (12.0-16.0)
[2019-06-23 06:31] LABS: Basophils # 0.1 10*3/uL (0.0-0.2); Basophils % 0.6 % (0.0-0.8); Eosinophils # 0.2 10*3/uL (0.0-0.87); Eosinophils % 1.5 % (0.00-10.9); Hematocrit 29.1 VOL% (35.7-47.0); Hemoglobin 9.5 GM/DL (12.0-16.0); Immature Granulocytes % 0.9 %; Immature Granulocytes Absolute 0.09 #; Lymphocytes # 2.7 10*3/uL (1.4-4.0); Lymphocytes % 25.2 % (21.3-54.2); Mean Corpuscular HGB Conc 32.6 GM/DL (32-36); Mean Corpuscular Volume 91.8 FL (87-102); Mean Platelet Volume 11.7 FL (9.6-12.0); Neutrophils % 63.8 % (38.7-73.9); Platelet Count 168 T/CUMM (130-400); Red Blood Count 3.17 MC/CUMM (3.8-5.5); Red Cell Distribution Width 14.6 % (9.3-17.3); White Blood Count 10.6 T/CUMM (4-12)
[2019-06-23 06:46] LABS: Calcium 7.9 MG/DL (8.5-10.1)
[2019-06-23] MEDS: LEVOTHYROXINE 112 MCG TABLET PO SCH (07:33)
[2019-06-23] MEDS ORDERED: propofoL 200 MG/20 ML VIAL IV ONE (09:00)
[2019-06-23] MEDS ORDERED: LIDOCAINE 2% 5 ML VIAL ONE (09:00)
[2019-06-23] MEDS ORDERED: ONDANSETRON 4 MG/2 ML VIAL ONE (09:00)
[2019-06-23] MEDS ORDERED: LACTATED RINGERS 1,000 ML IV SCH (10:00)
[2019-06-23] MEDS ORDERED: MAGNESIUM CITRATE 300 ML BOTTLE PO ONE (11:33)
[2019-06-23] MEDS: LACTATED RINGERS 1,000 ML IV SCH ×2 (11:41→11:42)
[2019-06-23] MEDS: AMIODARONE 200 MG TABLET PO SCH (12:42)
[2019-06-23] MEDS: METOPROLOL TARTRATE 50 MG TABLET PO SCH ×2 (12:42→20:53)
[2019-06-23] MEDS: SERTRALINE 25 MG TABLET PO SCH (12:43)
[2019-06-23] MEDS: MAGNESIUM CHLORIDE 64 MG TABLET PO SCH (12:43)
[2019-06-23] MEDS: PANTOPRAZOLE 40 MG VIAL IV SCH ×2 (12:44→20:53)
[2019-06-23] MEDS: ONDANSETRON 4 MG/2 ML VIAL IV PRN ×2 (12:48→20:53)
[2019-06-23 14:03] LABS: Hematocrit 25.3 VOL% (35.7-47.0); Hemoglobin 8.3 GM/DL (12.0-16.0)
[2019-06-23 19:51] LABS: Hematocrit 22.4 VOL% (35.7-47.0); Hemoglobin 7.3 GM/DL (12.0-16.0)
[2019-06-23] MEDS: MIRTAZAPINE 30 MG TABLET PO SCH (20:53)
[2019-06-23] MEDS: traZODone 50 MG TABLET PO SCH (20:53)
[2019-06-23] MEDS: MELATONIN 3 MG TABLET PO SCH (20:53)
[2019-06-23] MEDS: ATORVASTATIN 20 MG TABLET PO SCH (21:00)
[2019-06-24 05:42] LABS: Osmolality,Calculated 301.7 MOS/KG (273-304)
[2019-06-24 06:18] LABS: Basophils % 0.3 % (0.0-0.8); Eosinophils # 0.2 10*3/uL (0.0-0.87); Eosinophils % 1.8 % (0.00-10.9); Hematocrit 20.2 VOL% (35.7-47.0); Hemoglobin 6.5 GM/DL (12.0-16.0); Immature Granulocytes % 0.9 %; Immature Granulocytes Absolute 0.09 #; Lymphocytes # 2.7 10*3/uL (1.4-4.0); Lymphocytes % 27.3 % (21.3-54.2); Mean Corpuscular HGB Conc 32.2 GM/DL (32-36); Mean Corpuscular Volume 93.1 FL (87-102); Mean Platelet Volume 11.9 FL (9.6-12.0); Monocytes % 8.5 % (1.7-12.7); NRBC # 0.02 10*3/uL; Neutrophils % 61.2 % (38.7-73.9); Platelet Count 159 T/CUMM (130-400); Red Blood Count 2.17 MC/CUMM (3.8-5.5); Red Cell Distribution Width 15.1 % (9.3-17.3); White Blood Count 9.8 T/CUMM (4-12)
[2019-06-24] MEDS ORDERED: SODIUM CHLORIDE 0.9% 1,000 ML IV PRN (07:08)
[2019-06-24] MEDS ORDERED: LORazepam 0.5 MG TABLET PO PRN (11:20)
[2019-06-24] MEDS: AMIODARONE 200 MG TABLET PO SCH (11:49)
[2019-06-24] MEDS: LEVOTHYROXINE 112 MCG TABLET PO SCH (11:49)
[2019-06-24] MEDS: METOPROLOL TARTRATE 50 MG TABLET PO SCH ×2 (11:50→21:39)
[2019-06-24] MEDS: MAGNESIUM CHLORIDE 64 MG TABLET PO SCH (11:57)
[2019-06-24] MEDS: PANTOPRAZOLE 40 MG VIAL IV SCH ×2 (11:57→21:38)
[2019-06-24] MEDS: SERTRALINE 25 MG TABLET PO SCH (11:58)
[2019-06-24 20:27] LABS: Hematocrit 26.8 VOL% (35.7-47.0); Hemoglobin 8.7 GM/DL (12.0-16.0)
[2019-06-24] MEDS: traZODone 50 MG TABLET PO SCH (21:39)
[2019-06-24] MEDS: MIRTAZAPINE 30 MG TABLET PO SCH (21:39)
[2019-06-24] MEDS: ATORVASTATIN 20 MG TABLET PO SCH (21:39)
[2019-06-24] MEDS: LACTATED RINGERS 1,000 ML IV SCH (21:39)
[2019-06-25] MEDS: MELATONIN 3 MG TABLET PO SCH ×2 (00:25→21:16)
[2019-06-25 05:37] LABS: Basophils # 0.1 10*3/uL (0.0-0.2); Basophils % 0.6 % (0.0-0.8); Eosinophils # 0.2 10*3/uL (0.0-0.87); Eosinophils % 2.7 % (0.00-10.9); Hematocrit 26.2 VOL% (35.7-47.0); Hemoglobin 8.5 GM/DL (12.0-16.0); Immature Granulocytes % 0.4 %; Immature Granulocytes Absolute 0.03 #; Lymphocytes # 1.9 10*3/uL (1.4-4.0); Lymphocytes % 23.1 % (21.3-54.2); Mean Corpuscular HGB Conc 32.4 GM/DL (32-36); Mean Corpuscular Volume 91.3 FL (87-102); Mean Platelet Volume 11.4 FL (9.6-12.0); Monocytes % 9.1 % (1.7-12.7); Neutrophils % 64.1 % (38.7-73.9); Platelet Count 148 T/CUMM (130-400); Red Blood Count 2.87 MC/CUMM (3.8-5.5); White Blood Count 8.3 T/CUMM (4-12)
[2019-06-25 06:07] LABS: Calcium 7.4 MG/DL (8.5-10.1)
[2019-06-25] MEDS: LEVOTHYROXINE 112 MCG TABLET PO SCH (06:07)
[2019-06-25] MEDS: AMIODARONE 200 MG TABLET PO SCH (08:53)
[2019-06-25] MEDS: PANTOPRAZOLE 40 MG VIAL IV SCH ×2 (08:53→23:01)
[2019-06-25] MEDS: SERTRALINE 25 MG TABLET PO SCH (08:53)
[2019-06-25] MEDS: METOPROLOL TARTRATE 50 MG TABLET PO SCH (08:54)
[2019-06-25 09:26] LABS: Hematocrit 26.5 VOL% (35.7-47.0); Hemoglobin 8.6 GM/DL (12.0-16.0)
[2019-06-25] MEDS ORDERED: SODIUM CHLORIDE 0.9% 1,000 ML IV PRN ×3 (12:18→13:41)
[2019-06-25 18:51] LABS: Hematocrit 29.6 VOL% (35.7-47.0); Hemoglobin 9.4 GM/DL (12.0-16.0)
[2019-06-25] MEDS: traZODone 50 MG TABLET PO SCH (21:16)
[2019-06-25] MEDS: ATORVASTATIN 20 MG TABLET PO SCH (21:16)
[2019-06-25] MEDS: MIRTAZAPINE 30 MG TABLET PO SCH (21:16)
[2019-06-25 22:27] LABS: Hematocrit 30.2 VOL% (35.7-47.0); Hemoglobin 9.7 GM/DL (12.0-16.0)
[2019-06-25] MEDS: LACTATED RINGERS 1,000 ML IV SCH (23:03)
[2019-06-26 01:33] LABS: Hematocrit 29.1 VOL% (35.7-47.0); Hemoglobin 9.5 GM/DL (12.0-16.0)
[2019-06-26 05:06] LABS: Basophils % 0.5 % (0.0-0.8); Eosinophils # 0.2 10*3/uL (0.0-0.87); Eosinophils % 2.2 % (0.00-10.9); Hematocrit 29.7 VOL% (35.7-47.0); Hemoglobin 9.6 GM/DL (12.0-16.0); Immature Granulocytes % 0.5 %; Immature Granulocytes Absolute 0.04 #; Lymphocytes # 1.6 10*3/uL (1.4-4.0); Lymphocytes % 18.9 % (21.3-54.2); Mean Corpuscular HGB Conc 32.3 GM/DL (32-36); Mean Corpuscular Volume 91.7 FL (87-102); Mean Platelet Volume 11.5 FL (9.6-12.0); Monocytes % 8.9 % (1.7-12.7); Platelet Count 163 T/CUMM (130-400); Red Blood Count 3.24 MC/CUMM (3.8-5.5); Red Cell Distribution Width 16.2 % (9.3-17.3); White Blood Count 8.6 T/CUMM (4-12)
[2019-06-26] MEDS: LEVOTHYROXINE 112 MCG TABLET PO SCH (06:31)
[2019-06-26] MEDS: AMIODARONE 200 MG TABLET PO SCH (09:28)
[2019-06-26] MEDS: PANTOPRAZOLE 40 MG VIAL IV SCH (09:28)
[2019-06-26] MEDS: LACTATED RINGERS 1,000 ML IV SCH (09:28)
[2019-06-26] MEDS: SERTRALINE 25 MG TABLET PO SCH (09:28)
[2019-06-26 12:08] VITALS: BP 133/61
[2019-07-02] MEDS ORDERED: CYANOCOBALAMIN 1000 MCG/1 ML VIAL IM SCH (09:00)
== END 2019-06-26 13:55 | disposition home health service (06) | DRG 378 ==
LOC: N.ED 10:26 → SUATTDRO 13:46 → N.EDINP 13:46 → N.5E 14:47
PROVIDERS: ADMIT Internal Medicine; ATTEND Internal Medicine

== ENCOUNTER 2020-03-15 06:13 | Inpatient (IN) ==
[2020-03-09 12:20] LABS: Basophils # 0.1 10*3/uL (0.0-0.2); Basophils % 0.7 % (0.0-0.8); Eosinophils # 0.2 10*3/uL (0.0-0.87); Eosinophils % 2.2 % (0.00-10.9); Hematocrit 42.6 VOL% (35.7-47.0); Hemoglobin 13.7 GM/DL (12.0-16.0); Immature Granulocytes % 0.5 %; Immature Granulocytes Absolute 0.06 #; Lymphocytes # 2.2 10*3/uL (1.4-4.0); Lymphocytes % 19.8 % (21.3-54.2); Mean Corpuscular HGB Conc 32.2 GM/DL (32-36); Mean Corpuscular Volume 98.8 FL (87-102); Mean Platelet Volume 11.7 FL (9.6-12.0); Monocytes % 9.2 % (1.7-12.7); Neutrophils % 67.6 % (38.7-73.9); Platelet Count 247 T/CUMM (130-400); Red Blood Count 4.31 MC/CUMM (3.8-5.5); Red Cell Distribution Width 12.8 % (9.3-17.3); White Blood Count 11.1 T/CUMM (4-12)
[2020-03-09 12:34] LABS: Calcium 8.7 MG/DL (8.5-10.1)
[2020-03-09 12:44] LABS: Platelet Estimate Normal
[2020-03-09 12:45] LABS: Anisocytosis Slight
[2020-03-15] MEDS ORDERED: CLINDAMYCIN INJ 600 MG in PREMIX 1 EACH IV ONE (06:30)
[2020-03-15] MEDS ORDERED: DIAZEPAM 2 MG TABLET PO ONE (06:58)
[2020-03-15] MEDS ORDERED: ACETAMINOPHEN 500 MG TABLET PO ONE (06:58)
[2020-03-15] MEDS ORDERED: GABAPENTIN 400 MG CAPSULE PO ONE (06:58)
[2020-03-15] MEDS ORDERED: FAMOTIDINE 20 MG TABLET PO ONE (06:58)
[2020-03-15] MEDS ORDERED: LACTATED RINGERS 1,000 ML IV SCH (08:00)
[2020-03-15] MEDS ORDERED: BUPIVACAINE 0.5% 50 ML VIAL ONE (10:00)
[2020-03-15] MEDS ORDERED: ROPIVACAINE 0.5% 30 ML VIAL ONE (11:14)
[2020-03-15] MEDS ORDERED: PROMETHAZINE 25 MG/1 ML VIAL IM PRN (12:19)
[2020-03-15] MEDS ORDERED: traMADol 50 MG TABLET PO PRN (12:19)
[2020-03-15] MEDS ORDERED: fentaNYL 100 MCG/2 ML VIAL ONE (12:41)
[2020-03-15] MEDS ORDERED: DEXAMETHASONE 4 MG/1 ML VIAL ONE (12:41)
[2020-03-15] MEDS ORDERED: LIDOCAINE 2% 5 ML VIAL ONE (12:41)
[2020-03-15] MEDS ORDERED: GLYCOPYRROLATE 0.4 MG/2 ML VIAL ONE (12:41)
[2020-03-15] MEDS ORDERED: ETOMIDATE 40 MG/20 ML VIAL IV ONE (12:41)
[2020-03-15] MEDS ORDERED: SEVOFLURANE 1 UNIT/15 MINUTE INH ONE (12:41)
[2020-03-15] MEDS ORDERED: ePHEDrine 50 MG/ML VIAL ONE (12:41)
[2020-03-15] MEDS ORDERED: NEOSTIGMINE 10 MG/10 ML VIAL ONE (12:42)
[2020-03-15] MEDS ORDERED: ROCURONIUM 100 MG/10 ML VIAL IV ONE (12:42)
[2020-03-15] MEDS ORDERED: LACTATED RINGERS 1,000 ML IV ONE (12:42)
[2020-03-15] MEDS ORDERED: ONDANSETRON 4 MG/2 ML VIAL IV PRN (12:49)
[2020-03-15] MEDS: HYDROmorphone 2 MG/1 ML VIAL IV PRN ×4 (12:51→18:12)
[2020-03-15 13:03] LABS: Basophils # 0.1 10*3/uL (0.0-0.2); Basophils % 0.8 % (0.0-0.8); Eosinophils # 0.2 10*3/uL (0.0-0.87); Eosinophils % 1.9 % (0.00-10.9); Hematocrit 39.3 VOL% (35.7-47.0); Hemoglobin 13.3 GM/DL (12.0-16.0); Immature Granulocytes % 0.4 %; Immature Granulocytes Absolute 0.04 #; Lymphocytes % 19.5 % (21.3-54.2); Mean Corpuscular HGB Conc 33.8 GM/DL (32-36); Mean Corpuscular Volume 95.6 FL (87-102); Mean Platelet Volume 10.9 FL (9.6-12.0); Monocytes % 6.4 % (1.7-12.7); Platelet Count 209 T/CUMM (130-400); Red Blood Count 4.11 MC/CUMM (3.8-5.5); Red Cell Distribution Width 12.9 % (9.3-17.3); White Blood Count 10.3 T/CUMM (4-12)
[2020-03-15 13:21] LABS: Calcium 8.7 MG/DL (8.5-10.1); Osmolality,Calculated 288.1 MOS/KG (273-304)
[2020-03-15] MEDS: LACTATED RINGERS 1,000 ML IV SCH ×2 (14:08→21:02)
[2020-03-15] MEDS: POLYETHYLENE GLYCOL POWDER 17 GM PACK PO SCH (14:45)
[2020-03-15] MEDS: ONDANSETRON 4 MG/2 ML VIAL IV PRN (14:50)
[2020-03-15] MEDS: traZODone 50 MG TABLET PO SCH (21:05)
[2020-03-15] MEDS: ATORVASTATIN 20 MG TABLET PO SCH (21:05)
[2020-03-15] MEDS: METOPROLOL TARTRATE 50 MG TABLET PO SCH (21:06)
[2020-03-15] MEDS: MELATONIN 3 MG TABLET PO SCH (21:07)
[2020-03-15] MEDS: MEGESTROL 40 MG TABLET PO SCH (21:07)
[2020-03-15] MEDS: MIRTAZAPINE 30 MG TABLET PO SCH (21:08)
[2020-03-15] MEDS: PANTOPRAZOLE 40 MG TABLET PO SCH (21:08)
[2020-03-16] MEDS: HYDROmorphone 2 MG/1 ML VIAL IV PRN ×4 (04:12→20:27)
[2020-03-16 05:24] LABS: Basophils % 0.1 % (0.0-0.8); Eosinophils % 0.1 % (0.00-10.9); Hematocrit 30.7 VOL% (35.7-47.0); Immature Granulocytes % 0.5 %; Immature Granulocytes Absolute 0.05 #; Lymphocytes # 0.9 10*3/uL (1.4-4.0); Lymphocytes % 8.3 % (21.3-54.2); Mean Corpuscular HGB Conc 33.2 GM/DL (32-36); Mean Corpuscular Volume 95.6 FL (87-102); Mean Platelet Volume 12.2 FL (9.6-12.0); Monocytes % 9.8 % (1.7-12.7); Neutrophils % 81.2 % (38.7-73.9); Platelet Count 169 T/CUMM (130-400); Red Cell Distribution Width 12.7 % (9.3-17.3)
[2020-03-16 05:26] LABS: Hemoglobin 10.2 GM/DL (12.0-16.0); Red Blood Count 3.21 MC/CUMM (3.8-5.5)
[2020-03-16 05:28] LABS: Calcium 8.3 MG/DL (8.5-10.1); Osmolality,Calculated 279.5 MOS/KG (273-304)
[2020-03-16] MEDS: LACTATED RINGERS 1,000 ML IV SCH (06:38)
[2020-03-16] MEDS: ENOXAPARIN 40 MG/0.4 ML SYRINGE SUBCUT SCH (06:40)
[2020-03-16] MEDS: LEVOTHYROXINE 112 MCG TABLET PO SCH (06:43)
[2020-03-16] MEDS: MEGESTROL 40 MG TABLET PO SCH ×2 (09:15→20:36)
[2020-03-16] MEDS: METOPROLOL TARTRATE 50 MG TABLET PO SCH ×2 (09:15→20:36)
[2020-03-16] MEDS: POTASSIUM CHLORIDE 20 MEQ TABLET PO SCH (09:15)
[2020-03-16] MEDS: PANTOPRAZOLE 40 MG TABLET PO SCH ×2 (09:15→20:36)
[2020-03-16] MEDS: SERTRALINE 25 MG TABLET PO SCH (09:15)
[2020-03-16] MEDS: POLYETHYLENE GLYCOL POWDER 17 GM PACK PO SCH (09:15)
[2020-03-16] MEDS: AMIODARONE 200 MG TABLET PO SCH (09:15)
[2020-03-16] MEDS: DEXT 5% NACL 0.45% KCL 40 MEQ 40 MEQ/1,000 ML BAG IV SCH ×2 (09:20→20:37)
[2020-03-16] MEDS: ONDANSETRON 4 MG/2 ML VIAL IV PRN (14:05)
[2020-03-16] MEDS: MIRTAZAPINE 30 MG TABLET PO SCH (20:27)
[2020-03-16] MEDS: MELATONIN 3 MG TABLET PO SCH (20:35)
[2020-03-16] MEDS: ATORVASTATIN 20 MG TABLET PO SCH (20:35)
[2020-03-16] MEDS: traZODone 50 MG TABLET PO SCH (20:36)
[2020-03-17] MEDS: HYDROmorphone 2 MG/1 ML VIAL IV PRN ×3 (00:44→10:05)
[2020-03-17] MEDS: ONDANSETRON 4 MG/2 ML VIAL IV PRN (00:46)
[2020-03-17 06:10] LABS: Basophils % 0.3 % (0.0-0.8); Eosinophils # 0.2 10*3/uL (0.0-0.87); Eosinophils % 1.3 % (0.00-10.9); Hematocrit 39.4 VOL% (35.7-47.0); Hemoglobin 12.8 GM/DL (12.0-16.0); Immature Granulocytes % 0.5 %; Immature Granulocytes Absolute 0.06 #; Lymphocytes # 1.4 10*3/uL (1.4-4.0); Lymphocytes % 11.3 % (21.3-54.2); Mean Corpuscular HGB Conc 32.5 GM/DL (32-36); Mean Corpuscular Volume 96.3 FL (87-102); Monocytes % 10.7 % (1.7-12.7); Neutrophils % 75.9 % (38.7-73.9); Platelet Count 204 T/CUMM (130-400); Red Blood Count 4.09 MC/CUMM (3.8-5.5); White Blood Count 12.1 T/CUMM (4-12)
[2020-03-17] MEDS: LEVOTHYROXINE 112 MCG TABLET PO SCH (06:10)
[2020-03-17] MEDS: ENOXAPARIN 40 MG/0.4 ML SYRINGE SUBCUT SCH (06:11)
[2020-03-17 06:27] LABS: Calcium 8.8 MG/DL (8.5-10.1); Osmolality,Calculated 277.7 MOS/KG (273-304)
[2020-03-17] MEDS: DEXT 5% NACL 0.45% KCL 40 MEQ 40 MEQ/1,000 ML BAG IV SCH ×2 (08:35→20:30)
[2020-03-17] MEDS: AMIODARONE 200 MG TABLET PO SCH (08:36)
[2020-03-17] MEDS: MEGESTROL 40 MG TABLET PO SCH ×2 (08:36→20:43)
[2020-03-17] MEDS: METOPROLOL TARTRATE 50 MG TABLET PO SCH ×2 (08:36→20:43)
[2020-03-17] MEDS: POTASSIUM CHLORIDE 20 MEQ TABLET PO SCH (08:36)
[2020-03-17] MEDS: PANTOPRAZOLE 40 MG TABLET PO SCH ×2 (08:36→20:43)
[2020-03-17] MEDS: POLYETHYLENE GLYCOL POWDER 17 GM PACK PO SCH (08:36)
[2020-03-17] MEDS: SERTRALINE 25 MG TABLET PO SCH (08:36)
[2020-03-17] MEDS ORDERED: NALOXONE 0.4 MG/ML VIAL IV PRN (11:35)
[2020-03-17] MEDS: HYDROmorphone PCA 30 MG/30 ML SYRINGE IV SCH (12:53)
[2020-03-17] MEDS: METHOCARBAMOL INJ 500 MG in SODIUM CHLORIDE 0.9% 100 ML IV SCH ×2 (13:34→20:48)
[2020-03-17] MEDS: MIRTAZAPINE 30 MG TABLET PO SCH (20:43)
[2020-03-17] MEDS: ATORVASTATIN 20 MG TABLET PO SCH (20:43)
[2020-03-17] MEDS: traZODone 50 MG TABLET PO SCH (20:44)
[2020-03-17] MEDS: MELATONIN 3 MG TABLET PO SCH (20:44)
[2020-03-18] MEDS: METHOCARBAMOL INJ 500 MG in SODIUM CHLORIDE 0.9% 100 ML IV SCH ×2 (05:22→13:07)
[2020-03-18 05:39] LABS: Basophils % 0.3 % (0.0-0.8); Eosinophils # 0.2 10*3/uL (0.0-0.87); Eosinophils % 2.2 % (0.00-10.9); Hematocrit 35.6 VOL% (35.7-47.0); Hemoglobin 11.5 GM/DL (12.0-16.0); Immature Granulocytes % 0.6 %; Immature Granulocytes Absolute 0.06 #; Lymphocytes # 1.3 10*3/uL (1.4-4.0); Mean Corpuscular HGB Conc 32.3 GM/DL (32-36); Mean Corpuscular Volume 98.3 FL (87-102); Mean Platelet Volume 11.5 FL (9.6-12.0); Monocytes % 9.6 % (1.7-12.7); Neutrophils % 74.3 % (38.7-73.9); Platelet Count 200 T/CUMM (130-400); Red Blood Count 3.62 MC/CUMM (3.8-5.5); Red Cell Distribution Width 13.2 % (9.3-17.3); White Blood Count 9.6 T/CUMM (4-12)
[2020-03-18 06:02] LABS: Calcium 8.6 MG/DL (8.5-10.1); Osmolality,Calculated 274.8 MOS/KG (273-304)
[2020-03-18] MEDS: LEVOTHYROXINE 112 MCG TABLET PO SCH (06:16)
[2020-03-18] MEDS: DEXT 5% NACL 0.45% KCL 40 MEQ 40 MEQ/1,000 ML BAG IV SCH (06:20)
[2020-03-18] MEDS: POTASSIUM CHLORIDE 20 MEQ TABLET PO SCH (08:56)
[2020-03-18] MEDS: MEGESTROL 40 MG TABLET PO SCH ×2 (08:57→20:25)
[2020-03-18] MEDS: AMIODARONE 200 MG TABLET PO SCH (08:57)
[2020-03-18] MEDS: SERTRALINE 25 MG TABLET PO SCH (08:57)
[2020-03-18] MEDS: METOPROLOL TARTRATE 50 MG TABLET PO SCH ×2 (08:57→20:25)
[2020-03-18] MEDS: PANTOPRAZOLE 40 MG TABLET PO SCH ×2 (08:57→20:25)
[2020-03-18] MEDS: ENOXAPARIN 40 MG/0.4 ML SYRINGE SUBCUT SCH (08:57)
[2020-03-18] MEDS: POLYETHYLENE GLYCOL POWDER 17 GM PACK PO SCH (08:58)
[2020-03-18] MEDS ORDERED: ASPIRIN EC 81 MG TABLET PO SCH (09:00)
[2020-03-18] MEDS: HYDROmorphone PCA 30 MG/30 ML SYRINGE IV SCH (14:30)
[2020-03-18] MEDS: traZODone 50 MG TABLET PO SCH (20:24)
[2020-03-18] MEDS: MELATONIN 3 MG TABLET PO SCH (20:25)
[2020-03-18] MEDS: ATORVASTATIN 20 MG TABLET PO SCH (20:25)
[2020-03-18] MEDS: MIRTAZAPINE 30 MG TABLET PO SCH (20:26)
[2020-03-18] MEDS: METHOCARBAMOL 500 MG TABLET PO SCH (20:26)
[2020-03-19] MEDS: LEVOTHYROXINE 112 MCG TABLET PO SCH (06:31)
[2020-03-19] MEDS: SERTRALINE 25 MG TABLET PO SCH (08:44)
[2020-03-19] MEDS: METOPROLOL TARTRATE 50 MG TABLET PO SCH ×2 (08:44→21:17)
[2020-03-19] MEDS: MEGESTROL 40 MG TABLET PO SCH ×2 (08:44→21:18)
[2020-03-19] MEDS: AMIODARONE 200 MG TABLET PO SCH (08:44)
[2020-03-19] MEDS: METHOCARBAMOL 500 MG TABLET PO SCH ×3 (08:44→21:18)
[2020-03-19] MEDS: PANTOPRAZOLE 40 MG TABLET PO SCH ×2 (08:45→21:18)
[2020-03-19] MEDS: ENOXAPARIN 40 MG/0.4 ML SYRINGE SUBCUT SCH (08:45)
[2020-03-19] MEDS: POTASSIUM CHLORIDE 20 MEQ TABLET PO SCH (08:45)
[2020-03-19] MEDS: POLYETHYLENE GLYCOL POWDER 17 GM PACK PO SCH (08:45)
[2020-03-19] MEDS: HYDROmorphone PCA 30 MG/30 ML SYRINGE IV SCH (16:42)
[2020-03-19] MEDS: MIRTAZAPINE 30 MG TABLET PO SCH (21:18)
[2020-03-19] MEDS: traZODone 50 MG TABLET PO SCH (21:18)
[2020-03-19] MEDS: MELATONIN 3 MG TABLET PO SCH (21:18)
[2020-03-19] MEDS: ATORVASTATIN 20 MG TABLET PO SCH (21:18)
[2020-03-20] MEDS: LEVOTHYROXINE 112 MCG TABLET PO SCH (06:04)
[2020-03-20] MEDS: PANTOPRAZOLE 40 MG TABLET PO SCH (08:22)
[2020-03-20] MEDS: MEGESTROL 40 MG TABLET PO SCH (08:22)
[2020-03-20] MEDS: METHOCARBAMOL 500 MG TABLET PO SCH ×2 (08:22→14:40)
[2020-03-20] MEDS: SERTRALINE 25 MG TABLET PO SCH (08:22)
[2020-03-20] MEDS: ENOXAPARIN 40 MG/0.4 ML SYRINGE SUBCUT SCH (08:22)
[2020-03-20] MEDS: POTASSIUM CHLORIDE 20 MEQ TABLET PO SCH (08:22)
[2020-03-20] MEDS: AMIODARONE 200 MG TABLET PO SCH (08:22)
[2020-03-20] MEDS: POLYETHYLENE GLYCOL POWDER 17 GM PACK PO SCH (08:22)
[2020-03-20] MEDS: METOPROLOL TARTRATE 50 MG TABLET PO SCH (08:22)
[2020-03-20 11:58] VITALS: BP 143/62
[2020-03-21] MEDS ORDERED: CYANOCOBALAMIN 1000 MCG/1 ML VIAL IM SCH (09:00)
== END 2020-03-20 15:16 | disposition home health service (06) | DRG 354 ==
LOC: N.OR 06:13 → N.SDSINP 06:13 → N.5E 13:45
PROVIDERS: ADMIT Surgery; ATTEND Surgery